=== PATIENT | female | born 1945 | race Caucasian/White ===

== ENCOUNTER 2021-07-07 14:41 | Emergency (ER) | payer MEDICARE, SELFPAY ==
--- NOTE | 2021-07-07 15:28 | ED.PSYCH ---
HPI - Psych General Stated Complaint: CRISIS Time Seen by Provider: 07/07/21 15:19 Source: patient and EMS Mode of arrival: EMS Limitations: no limitations History of Present Illness HPI Narrative: Patient comes to the emergency room by EMS, patient states that she is looking for help for alcohol recovery. Patient states that she was sober for 8 years, recently started drinking. Patient states that her mixed emotions heat her to continue drinking. Patient states she has not seen her daughter or granddaughter in several years, their birthdays coming up. Several years ago they had a disagreement and having spoken since then. Patient denies suicidal or homicidal ideation Related Data Allergies Allergy/AdvReac Type Severity Reaction Status Date / Time No Known Allergies Allergy Verified 07/07/21 15:27 Review of Systems Review of Systems: Constitutional : No Weight loss, No Fever, No Chills, No Night Sweats, No Fatigue, No Malaise ENT/Mouth : No Hearing loss, No Ear Pain, No Nasal Congestion, No Sinus Pain, No Hoarseness, No sore throat, No Rhinorrhea, No Swallowing Difficulty Eyes: No Eye Pain, No Swelling, No Redness, No Foreign Body, No Discharge, No Vision Changes Cardiovascular : No Chest Pain, No SOB, No Dyspnea on Exertion, No Orthopnea, No Edema, No Palpitations Respiratory : No Cough, No Sputum, No Wheezing, No Smoke Exposure, No Dyspnea Gastrointestinal : No Nausea, No Vomiting, No Diarrhea, No Constipation, No abdominal Pain, No Hematochezia, No Melena Genitourinary : no irregular bleeding, No Dysuria, No Urinary Frequency, No Hematuria, No Urinary Incontinence, No Urgency, No Flank Pain, No Urinary Flow Changes, No Hesitancy Musculoskeletal : No joint pain, No Myalgias, No Joint Swelling Skin : No Skin Lesions, No rash Neuro : No Weakness, No Numbness, No Paresthesias, No Loss of Consciousness, No Dizziness, No Headache Psych : Complaining of anxiety, depression, no SI, no HI Heme/Lymph: No Bruising, No Bleeding,No Lymphadenopathy Endocrine : No Polyuria, No Polydipsia, No Temperature Intolerance Physical Exam Const: Other: Appearance: Alert. Oriented X3. No acute distress. Eyes: Pupils equal, round and reactive to light. ENT: Pharynx normal. Neck: Normal inspection. Neck supple. No lymph nodes noted. No crepitus CVS: Normal heart rate and rhythm. Pulses normal. Normal S1 and S2 Respiratory: No respiratory distress. Breath sounds normal. No Wheezing. No rales Abdomen: Soft and nontender. No rigidity. No distention. good BS x4 Skin: Skin warm and dry. Normal skin color. Normal skin turgor. Extremities: No lower extremity edema. No Lacerations. No Rash Neuro: Oriented X 3. No motor deficit. No sensory deficit. Moving all extermities. No slurred speech. Cranial nerves 2-12 grossly intact Psych: Normal speech, tearful Course Course Course Narrative: Behavioral health consult pending. Physician observation started at 15:30. Sign-out given to Dr. Alcocer Discharge Plan Discharge Clinical Impression: Alcohol abuse
[2021-07-07 15:42] LABS: Appearance Urine CLEAR; Color Urine YELLOW; Glucose Urine UA NEG (NEG); Leukocyte Esterase Urine NEG (NEG); Nitrite Urine NEG (NEG); Specific Gravity - Urine <= 1.005 (1.005-1.025); UACC Culture Trigger NO; Urine Blood 1+ (NEG); Urine Ketones NEG (NEG); Urine Protein TRACE MG/DL (NEG-TRACE)
[2021-07-07 15:45] VITALS: BP 170/108; PULSE 124; RESP 18; TEMP 36.6; O2SAT 99; BMI 27.1
[2021-07-07 15:53] LABS: Amorphous Sediment Urine TRACE /LPF; Bacteria Urine TRACE /LPF; Squamous Epithelial Cell Urine TRACE /LPF; WBC Urine 0-2 /HPF (0-4)
[2021-07-07 15:58] LABS: Amphetamine Screen Urine Not Detected (Not Detect); Barbiturates, Urine POSITIVE (Not Detect); Benzodiazepines Screen Urine Not Detected (Not Detect); Cannabinoid Screen Urine Not Detected (Not Detect); Cocaine Screen Urine Not Detected (Not Detect); Fentanyl, urine Not Detected (Not Detect); Opiate Screen Urine Not Detected (Not Detect); Phencyclidine Screen Urine Not Detected (Not Detect)
[2021-07-07] MEDS: LORazepam 1 MG TABLET PO ×2 (16:08→23:52)
--- NOTE | 2021-07-07 17:23 | MHC.RECOVSUP ---
? Reason for consult Recovery Support o Current location: [facility] o Identified substance use concern: Alcohol - Seeking ATS (detox) - Support ? Intervention: o Community resources provided o Harm reduction discussion ? Plan: o Bed search in progress to o Follow up tomorrow o Patient to follow up with [facility] after discharge ? Additional information: Met with Patient and we talk about recovery, Harm Reduction, and recovery Coaching.. Client was very pleased to hear about [facility] and is looking forward to visiting the recovery center.. Patient want to go to detox to start her recovery again. Jose is working [facility], and asset recovery specialist..
--- NOTE | 2021-07-07 17:27 | MHC.RECOVSUP ---
Recovery Support note: Patient is a 76 year old Cameroonian speaking female who presented to [facility] ED seeking alcohol detox. This scientific technical writer met with patient to discuss her recovery and treatment options. Patient reports alcoholism throughout much of her adult life. Patient reports periods of sobriety last 1-5 years with periods of relapse. Patient states she has felt lonely and isolated and attributes this to her relapse. Patient reports she has been consuming 20-30 nips daily for the past several months. Patient reports she previously went to [facility] 6 months ago and found it very helpful and that she would like to return if possible. This scientific technical writer will refer patient to [facility] for ATS. [facility] reports no beds at this time and to follow up tomorrow. Discussed recovery supports with patient. Patient is interested in returning to and states there is a meeting walking distance from her house. Patient is interested in meeting with a Anesthesiology Medical Doctor while in the hospital and would also like a life skills coach to contact her after discharge for ongoing support. Discussed medications with patient. Patient reports she has had great success with Antabuse in the past and that she would like to get back on the medication. Patient reports she has a therapist who she finds very helpful and is in contact with weekly. Discussed case with patient's RN and ED provider.
[2021-07-07] MEDS: LORazepam 1 MG TABLET 2 MG PO (18:18)
[2021-07-07 19:10] VITALS: BP 134/79; PULSE 114; RESP 16; TEMP 37.4; O2SAT 98
[2021-07-07 19:13] LABS: COVID-19 Test Negative (Negative)
[2021-07-07 19:22] LABS: MANUAL DIFF FLAG NO
[2021-07-07 19:24] LABS: Basophils Percent Auto 0.5 % (0-2); Eosinophils Absolute Auto 0.1 X10*3/uL (0.0-0.4); Eosinophils Percent Auto 1.3 % (0-4); Hematocrit 30.5 % (37-47); Hemoglobin 10.5 g/dl (12.0-16.0); Imm Gran Abs Auto 0.01 X10*3/uL (0.00-0.03); Imm Gran Pct Auto 0.2 % (0.0-0.4); Lymphocytes Absolute Auto 1.9 X10*3/uL (1.2-4.9); Lymphocytes Percent Auto 34.8 % (20-40); Mean Corpuscular HGB Conc 34.4 g/dl (31.0-35.0); Mean Corpuscular Hemoglobin 31.3 pg (27.0-33.0); Mean Corpuscular Volume 90.8 fL (80-98); Monocytes Absolute Auto 0.7 X10*3/uL (0.1-1.2); Monocytes Percent Auto 13.1 % (2-11); Neutrophils Absolute Auto 2.8 X10*3/uL (2.0-8.3); Neutrophils Percent Auto 50.1 % (45-73); Platelet Count 273 X10*3/uL (160-400); Red Blood Count 3.36 X10*6/uL (4.20-5.50); Red Cell Distribution Width 13.3 % (11.0-16.0); White Blood Count 5.6 X10*3/uL (4.8-10.8)
[2021-07-07 19:39] LABS: Ethanol < 10 mg/dL
--- NOTE | 2021-07-07 19:41 | MHC.RECOVSUP ---
Just confirm Monisha received Paper work for patient
[2021-07-07 19:43] LABS: Alanine Aminotransferase 20 U/L (0-31); Albumin Level 3.9 g/dL (3.5-5.0); Alkaline Phosphatase 86 U/L (39-117); Anion Gap 11 (12-20); Aspartate Amino Transferase 26 U/L (5-31); Bilirubin Direct 0.2 mg/dL (0.0-0.5); Bilirubin Total 0.3 mg/dL (0.0-1.0); Blood Urea Nitrogen 14 mg/dL (9-16); Calcium 8.8 mg/dL (8.4-10.2); Carbon Dioxide 24 mmol/L (22-29); Chloride 106 mmol/L (96-108); Creatinine Clr Calc Pharmacy 52.5; Estimated Glomerular Filt Rate > 60; Glucose Random 130 mg/dL (60-115); Magnesium 1.5 mg/dL (1.6-2.6); Potassium 3.6 mmol/L (3.3-5.1); Sodium 137 mmol/L (135-145); Total Protein 5.9 g/dL (6.5-8.0)
[2021-07-07 23:51] VITALS: BP 145/75; PULSE 91; RESP 18; TEMP 36.8; O2SAT 98
[2021-07-08] MEDS: LORazepam 1 MG TABLET PO ×2 (06:31→10:11)
[2021-07-08 06:34] VITALS: BP 154/97; PULSE 101; TEMP 36.7; O2SAT 99
--- NOTE | 2021-07-08 07:14 | PC.NURSE ---
patient appears to remain asleep at present with even unlabored breaths patient appears in no distress
[2021-07-08 08:41] VITALS: BP 131/92; PULSE 103; TEMP 36.8; O2SAT 98
[2021-07-08] MEDS: Ibuprofen 800 MG TABLET PO (10:11)
[2021-07-08] MEDS: Magnesium Oxide 400 MG TABLET PO (11:19)
== END 2021-07-08 12:22 | disposition other institution (70) ==
PROVIDERS: Nurse Practitioner Family; Emergency Provider Emergency Medicine; PCP Internal Medicine
DX: F10.10 Alcohol abuse, uncomplicated (principal); Z20.822 Contact with and (suspected) exposure to COVID-19
CPT/HCPCS: 36415; 80048; 80076; 80307; 81001; 82077; 83735; 85025; 87635; 99284

== ENCOUNTER 2021-07-16 05:22 | Emergency (ER) | payer MEDICARE, SELFPAY ==
--- NOTE | 2021-07-16 | ECG_ITS ---
Test Reason : ETOH Blood Pressure : / mmHG Vent. Rate : 094 BPM Atrial Rate : 094 BPM P-R Int : 142 ms QRS Dur : 088 ms QT Int : 360 ms P-R-T Axes : -26 052 054 degrees QTc Int : 450 ms Normal sinus rhythm Normal ECG No previous ECGs available Referred By: Generic ED Physician Electronically Signed By:LASHAWN FLORES MD
[2021-07-16 05:27] VITALS: BP 126/77; BP 135/94; PULSE 102; PULSE 103; RESP 21; TEMP 37.4; O2SAT 98; BMI 21.9
[2021-07-16 05:48] LABS: MANUAL DIFF FLAG NO
[2021-07-16 05:49] LABS: Basophils Percent Auto 0.6 % (0-2); Eosinophils Percent Auto 0.4 % (0-4); Hematocrit 37.2 % (37-47); Hemoglobin 12.7 g/dl (12.0-16.0); Imm Gran Abs Auto 0.01 X10*3/uL (0.00-0.03); Imm Gran Pct Auto 0.2 % (0.0-0.4); Lymphocytes Absolute Auto 1.7 X10*3/uL (1.2-4.9); Lymphocytes Percent Auto 32.2 % (20-40); Mean Corpuscular HGB Conc 34.1 g/dl (31.0-35.0); Mean Corpuscular Hemoglobin 32.2 pg (27.0-33.0); Mean Corpuscular Volume 94.4 fL (80-98); Mean Platelet Volume 8.8 fL (9.4-12.3); Monocytes Absolute Auto 0.3 X10*3/uL (0.1-1.2); Monocytes Percent Auto 6.4 % (2-11); Neutrophils Absolute Auto 3.1 X10*3/uL (2.0-8.3); Neutrophils Percent Auto 60.2 % (45-73); Platelet Count 327 X10*3/uL (160-400); Red Blood Count 3.94 X10*6/uL (4.20-5.50); Red Cell Distribution Width 13.4 % (11.0-16.0); White Blood Count 5.2 X10*3/uL (4.8-10.8)
[2021-07-16 06:00] LABS: Ethanol 96 mg/dL
[2021-07-16 06:05] LABS: Alanine Aminotransferase 27 U/L (0-31); Albumin Level 4.4 g/dL (3.5-5.0); Alkaline Phosphatase 93 U/L (39-117); Anion Gap 16 (12-20); Aspartate Amino Transferase 28 U/L (5-31); Bilirubin Total < 0.2 mg/dL (0.0-1.0); Blood Urea Nitrogen 22 mg/dL (9-16); Calcium 9.7 mg/dL (8.4-10.2); Carbon Dioxide 23 mmol/L (22-29); Chloride 112 mmol/L (96-108); Creatinine Clr Calc Pharmacy 43.4; Estimated Glomerular Filt Rate 55; Glucose Random 107 mg/dL (60-115); Potassium 4.1 mmol/L (3.3-5.1); Sodium 147 mmol/L (135-145); Total Protein 6.8 g/dL (6.5-8.0)
[2021-07-16 06:08] LABS: COVID-19 Test Negative (Negative); IDNOW Serial# 9DD0AD1C
--- NOTE | 2021-07-16 06:12 | ED_ITS ---
HPI - Alcohol General Chief Complaint: ETOH/Substance Use Stated Complaint: etoh Time Seen by Provider: 07/16/21 06:08 Source: patient and EMS Mode of arrival: EMS Limitations: no limitations History of Present Illness HPI narrative: Patient is 76 years alcoholic since teenage been to various detox in the past recently went to [facility] had a problem there and left [facility] 3 days ago been drinking nonstop for last 3 days patient was sober for 8 months started drinking for last 3 weeks. Denies any depression or suicidal ideation patient requesting to go to detox again this time. No nausea no vomiting no abdominal pain no hematemesis or melena Related Data Home Medications Medication Instructions Recorded Confirmed hydrochlorothiazide 25 mg tablet 1 tab PO QAM 07/07/21 07/16/21 ibuprofen 800 mg tablet 1 tab PO TID 07/07/21 07/16/21 baclofen 10 mg tablet 1 tab PO DAILY 07/16/21 07/16/21 escitalopram oxalate 10 mg tablet 1 tab PO DAILY 07/16/21 07/16/21 lisinopril 10 mg tablet 1 tab PO DAILY 07/16/21 07/16/21 prazosin 2 mg capsule 1 cap PO BEDTIME 07/16/21 07/16/21 Allergies Allergy/AdvReac Type Severity Reaction Status Date / Time No Known Allergies Allergy Verified 07/07/21 15:27 Review of Systems Review of Systems: Yes all other systems are reviewed and are negative [facility] Past Medical History Medical History (Updated 07/16/21 @ 06:37 by Timur Proctor MD) Alcoholic Social History Social History Alcohol intake: never Patient Tobacco Use Status: Never used Tobacco Use of substances other than those prescribed or required for medical reasons: No Advance Directives: No Advance Directives Information Provided: No Physical Exam Vital Signs: Vital Signs: Last Vital Signs Temp 99.3 F 07/16/21 05:27 Pulse 103 H 07/16/21 05:27 Resp 21 H 07/16/21 05:27 BP 126/77 07/16/21 05:27 Pulse Ox 98 07/16/21 05:27 Body Mass Index 21.9 Appearance: Alert. Oriented X3. Jittery and tremulous Eyes: PERRLA, No Nystagmus ENT: Pharynx normal. Oral Mucosa moist Neck: Normal inspection. Neck supple. CVS: Normal heart rate and rhythm. Pulses normal. Respiratory: No respiratory distress. Equal air entry bilateral, no wheezing/rales/rhonchi Abdomen: Soft and nontender. Bowel sounds are present, no mass palpable, no CVA tenderness Skin: Skin warm and dry. Normal skin color. Normal skin turgor. Extremities: No lower extremity edema. No calf tenderness Neuro: Oriented X 3. No motor deficit. No sensory deficit.No cerebellar signs , cranial nerves II-XII intact MDM - Alcohol MDM Narrative Medical decision making narrative: Patient alcoholic with alcohol withdrawal looking for detox will start on CIWA protocol Librium p.o. was given 1 dose of I V Ativan IV fluids, was given thiamine, pyridoxin, , folic acid Lab Data Attestation: I reviewed the patient's lab results. Result diagrams: 07/16/21 05:43 07/16/21 05:43 Labs: Lab Results 07/16/21 07/16/21 07/16/21 Range/Units 05:43 05:43 05:43 WBC 5.2 (4.8-10.8) X10*3/uL RBC 3.94 L (4.20-5.50) X10*6/uL Hgb 12.7 D (12.0-16.0) g/dl Hct 37.2 D (37-47) % MCV 94.4 (80-98) fL MCH 32.2 (27.0-33.0) pg MCHC 34.1 (31.0-35.0) g/dl RDW 13.4 (11.0-16.0) % Plt Count 327 (160-400) X10*3/uL MPV 8.8 L (9.4-12.3) fL Immature Gran % (Auto) 0.2 (0.0-0.4) % Neut % (Auto) 60.2 (45-73) % Lymph % (Auto) 32.2 (20-40) % [place] % (Auto) 6.4 (2-11) % Eos % (Auto) 0.4 (0-4) % Baso % (Auto) 0.6 (0-2) % Lymph # (Auto) 1.7 (1.2-4.9) X10*3/uL [place] # (Auto) 0.3 (0.1-1.2) X10*3/uL Eos # (Auto) 0.0 (0.0-0.4) X10*3/uL Baso # (Auto) 0.0 (0.0-0.2) X10*3/uL Abs Immat Gran (auto) 0.01 (0.00-0.03) X10*3/uL Absolute Neuts (auto) 3.1 (2.0-8.3) X10*3/uL Absolute Nucleated RBC 0.000 (0.0-0.012) X10*3/uL Nucleated RBC % (auto) 0.0 (0.0-0.2) /100WBC Sodium (135-145) mmol/L Potassium (3.3-5.1) mmol/L Chloride (96-108) mmol/L Carbon Dioxide (22-29) mmol/L Anion Gap (12-20) BUN (9-16) mg/dL Creatinine (0.5-1.4) mg/dL Estim Creat Clear Calc Estimated GFR Random Glucose (60-115) mg/dL Calcium (8.4-10.2) mg/dL Magnesium (1.6-2.6) mg/dL Total Bilirubin (0.0-1.0) mg/dL AST (5-31) U/L ALT (0-31) U/L Alkaline Phosphatase (39-117) U/L Total Protein (6.5-8.0) g/dL Albumin (3.5-5.0) g/dL Ethyl Alcohol 96 mg/dL COVID-19 ([facility]) Negative (Negative) COVID-19 Clin Com See Note 07/16/21 Range/Units 05:43 WBC (4.8-10.8) X10*3/uL RBC (4.20-5.50) X10*6/uL Hgb (12.0-16.0) g/dl Hct (37-47) % MCV (80-98) fL MCH (27.0-33.0) pg MCHC (31.0-35.0) g/dl RDW (11.0-16.0) % Plt Count (160-400) X10*3/uL MPV (9.4-12.3) fL Immature Gran % (Auto) (0.0-0.4) % Neut % (Auto) (45-73) % Lymph % (Auto) (20-40) % [place] % (Auto) (2-11) % Eos % (Auto) (0-4) % Baso % (Auto) (0-2) % Lymph # (Auto) (1.2-4.9) X10*3/uL [place] # (Auto) (0.1-1.2) X10*3/uL Eos # (Auto) (0.0-0.4) X10*3/uL Baso # (Auto) (0.0-0.2) X10*3/uL Abs Immat Gran (auto) (0.00-0.03) X10*3/uL Absolute Neuts (auto) (2.0-8.3) X10*3/uL Absolute Nucleated RBC (0.0-0.012) X10*3/uL Nucleated RBC % (auto) (0.0-0.2) /100WBC Sodium 147 H (135-145) mmol/L Potassium 4.1 (3.3-5.1) mmol/L Chloride 112 H (96-108) mmol/L Carbon Dioxide 23 (22-29) mmol/L Anion Gap 16 (12-20) BUN 22 H D (9-16) mg/dL Creatinine 0.98 (0.5-1.4) mg/dL Estim Creat Clear Calc 43.4 Estimated GFR 55 Random Glucose 107 (60-115) mg/dL Calcium 9.7 D (8.4-10.2) mg/dL Magnesium 2.0 (1.6-2.6) mg/dL Total Bilirubin < 0.2 (0.0-1.0) mg/dL AST 28 (5-31) U/L ALT 27 (0-31) U/L Alkaline Phosphatase 93 (39-117) U/L Total Protein 6.8 (6.5-8.0) g/dL Albumin 4.4 (3.5-5.0) g/dL Ethyl Alcohol mg/dL COVID-19 ([facility]) (Negative) COVID-19 Clin Com Discharge Plan Discharge Clinical Impression: Alcohol withdrawal syndrome Qualifiers: Complication of substance-induced condition: uncomplicated Qualified Code(s): F10.230 - Alcohol dependence with withdrawal, uncomplicated Prescriptions: No Action baclofen 10 mg tablet 1 tab PO DAILY RF: 0 lisinopril 10 mg tablet 1 tab PO DAILY RF: 0 prazosin 2 mg capsule 1 cap PO BEDTIME RF: 0 escitalopram oxalate 10 mg tablet 1 tab PO DAILY RF: 0 hydrochlorothiazide 25 mg tablet 1 tab PO QAM RF: 0 ibuprofen 800 mg tablet 1 tab PO TID RF: 0
[2021-07-16] MEDS: Folic Acid 1 MG TABLET PO (06:20)
[2021-07-16] MEDS: Thiamine HCL 100 MG TABLET PO (06:20)
[2021-07-16] MEDS: chlordiazePOXIDE HCl 5 MG CAPSULE 50 MG PO ×2 (06:20→13:37)
[2021-07-16] MEDS: LORazepam 2 MG/ML VIAL IVPUSH (06:20)
[2021-07-16] MEDS: 0.9 % Sodium Chloride 1,000 ML 999 ML IVCONT (06:24)
[2021-07-16] MEDS: Pyridoxine HCl (Vitamin B6) 50 MG TABLET PO (06:53)
[2021-07-16 07:16] VITALS: BP 141/77; PULSE 96; RESP 15; O2SAT 98
[2021-07-16 11:37] VITALS: BP 146/79; PULSE 94; RESP 19; TEMP 37.3; O2SAT 99
[2021-07-16 12:48] LABS: Amphetamine Screen Urine Not Detected (Not Detect); Barbiturates, Urine Not Detected (Not Detect); Benzodiazepines Screen Urine POSITIVE (Not Detect); Cannabinoid Screen Urine Not Detected (Not Detect); Cocaine Screen Urine Not Detected (Not Detect); Fentanyl, urine Not Detected (Not Detect); Opiate Screen Urine Not Detected (Not Detect); Phencyclidine Screen Urine Not Detected (Not Detect)
--- NOTE | 2021-07-16 13:15 | MHC.RECOVSUP ---
? Reason for consult:Continuity of care o Current location: ED 17 o Identified substance use concern: ETOH - Withdrawal - Seeking ATS (detox) - Support ? Intervention: o ATS bed search started/completed/in process o MAT started or to be started o Community resources provided o Harm reduction discussion ? Plan: o Referral to [facility] o Patient to follow up with [facility] after discharge ? Additional information: Patient seeking detox, no bed availability within a 100 miles, referred patient to the [facility] and [facility]. [facility] coach or instructor and spoke with her re:MAT
--- NOTE | 2021-07-16 14:14 | MHC.RECOVRN ---
T/w assistance requested to schedule [employer] to transport pt home after finding no ATS availability. Met with pt, pt visibly tremulous, denies tremors at baseline. Pt reports upset stomach, sweating, anxiety. Pt states There are bugs crawling on the wall, I've never seen that before. Pt reports last drink 0300. Pt reports desire to stop drinking, states I'm not drinking again. There isn't any at my house. T/w discussed discharge concerns with Dr. Alcocer and pts RN, including pts hallucinations. Per provider, She can drink when she gets home if she needs to. Pt discharged, t/w arranging transport. Discussed concerns with Queenie Fofana APRN.
== END 2021-07-16 14:30 | disposition home or self-care (01) ==
PROVIDERS: Emergency Provider Internal Medicine; PCP Internal Medicine
DX: F10.230 Alcohol dependence with withdrawal, uncomplicated (principal); Y90.4 Blood alcohol level of 80-99 mg/100 ml; Z20.822 Contact with and (suspected) exposure to COVID-19; Z79.899 Other long term (current) drug therapy
CPT/HCPCS: 36415; 80053; 80307; 82077; 83735; 85025; 87635; 93005; 96361; 96374; 99284; 99285; J2060

== ENCOUNTER 2021-07-19 08:02 | Inpatient (IN) | payer MEDICARE, SELFPAY ==
[2021-07-19 08:10] VITALS: BP 142/79; PULSE 104; RESP 16; TEMP 36.7; O2SAT 99; BMI 23.3
--- NOTE | 2021-07-19 08:14 | ED.ALCOHOL ---
HPI - Alcohol General Chief Complaint: ETOH/Substance Use Stated Complaint: ?ETOH WITHDRAWAL Time Seen by Provider: 07/19/21 08:13 Source: patient and EMS Mode of arrival: EMS Limitations: no limitations History of Present Illness HPI narrative: 76-year-old female came in by ambulance seeking a detox program from alcohol. Patient with history of alcoholism since young age, patient lives home alone, patient was bingeing on drinking alcohol for the past few days, last drink was before arrival about half an hour ago, patient is here for further evaluation and refer her to rehab place. Patient admitted to seeing bugs, but otherwise no visual hallucination. Patient declined headache, blurry vision, neck pain, chest pain, abdominal pain, nausea, or vomiting today. Related Data Home Medications Medication Instructions Recorded Confirmed hydrochlorothiazide 25 mg tablet 1 tab PO QAM 07/07/21 07/16/21 ibuprofen 800 mg tablet 1 tab PO TID 07/07/21 07/16/21 baclofen 10 mg tablet 1 tab PO DAILY 07/16/21 07/16/21 escitalopram oxalate 10 mg tablet 1 tab PO DAILY 07/16/21 07/16/21 lisinopril 10 mg tablet 1 tab PO DAILY 07/16/21 07/16/21 prazosin 2 mg capsule 1 cap PO BEDTIME 07/16/21 07/16/21 Previous Rx's Medication Instructions Recorded lorazepam 0.5 mg tablet (Ativan) 0.5 mg PO TID PRN #14 tab 07/19/21 Allergies Allergy/AdvReac Type Severity Reaction Status Date / Time No Known Allergies Allergy Verified 07/07/21 15:27 Review of Systems Review of Systems: All other systems are reviewed and are negative Constitutional: Reports as per HPI and Reports no additional constitutional complaints Eyes: Reports as per HPI and Reports no additional eye complaints Reports system reviewed and no additional complaints, except as documented Cardiovascular: Reports as per HPI and Reports no additional cardiovascular complaints Respiratory: Reports as per HPI and Reports no additional respiratory complaints Gastrointestinal: Reports as per HPI and Reports no additional gastrointestinal complaints Genitourinary: Reports no additional female genitourinary complaints Musculoskeletal: Reports no additional musculoskeletal complaints Skin/Breast: Reports system reviewed and no additional complaints, except as docu Psychiatric: Reports no additional psychiatric complaints Endocrine: Reports no additional endocrine complaints Hematologic/Lymphatic: Reports no additional hematologic/lymphatic complaints Allergic/Immunologic: Reports no additional allergic/immunologic complaints Reports system reviewed and no additional complaints, except as documented and Reports Abnormal speech present [facility] Past Medical History Medical History Alcoholic Social History Social History Alcohol intake: current Alcohol intake frequency: 3 or more drinks per day Patient Tobacco Use Status: Never used Tobacco Use of substances other than those prescribed or required for medical reasons: No Advance Directives: No Advance Directives Information Provided: No Physical Exam Vital Signs: Vital Signs: Last Vital Signs Temp 98.0 F 07/19/21 08:10 Pulse 104 H 07/19/21 08:10 Resp 16 07/19/21 12:00 BP 142/79 H 07/19/21 08:10 Pulse Ox 99 07/19/21 08:10 Body Mass Index 23.3 Vital signs have been reviewed as appeared to be correct. Blood pressure normal. Heart rate elevated. Respiration rate normal. Temperature normal. Oxygen saturation normal. Appearance: Alert. Oriented X3. No acute distress. Head: Normal external exam. Normocephalic. Atraumatic. No Amor signs noted. No raccoon eyes noted Eyes: PERRLA. EOMI. Conjunctiva and sclera normal. Eyelids normal. ENT: TM's Normal. Pharynx normal. Uvula midline. Moist mucous membranes. No trismus noted. No drooling noted. No muffled voice noted. Neck: Normal inspection. Neck supple. FROM. No adenopathy. Thyroid Normal. No meningeal signs. No neck mass noted. CVS: Normal heart rate and rhythm. Heart sound normal. No murmurs noted. Pulses normal throughout. Respiratory: No respiratory distress. Painless inspiration. Breath sounds normal. No wheezes/rales/rhonchi noted. Chest nontender. No accessory muscle usage noted or decreased air movement noted. Abdomen: Soft and nontender. Bowel sounds normal in all 4 quadrants. No distention noted. No organomegaly noted. No visible injury noted. Back: No CVA tenderness. Full range of motion noted. Skin: Skin warm and dry. Normal skin color. Normal skin turgor. No rashes/lesions/lacerations noted. Extremities: No lower extremity edema. Extremities exhibit normal range of motion. Extremities nontender. Neuro: Oriented X 3. Cranial nerve exam: II-XII are grossly intact No motor deficit. No sensory deficit. Reflexes normal. Course Course Course Narrative: Assessment and plan. 76-year-old female with chronic alcoholism, patient came to the hospital seeking detox program, care team input was appreciated trying to place the patient in a detox program no beds were open today, I discussed with the patient the plan is to to be discharged with Ativan medication to help patient with withdrawal symptoms, patient at discharge has no SI or HI or hallucination. Patient is safe to be discharged home. Reevaluation(s) Reevaluation #1: Patient started show sign of alcohol withdrawal with severe tremors and tongue fasciculation. Will keep the patient on phenobarb and admit. Time: 14:29 [facility] - Alcohol Medical Records Attestation: I reviewed the patient's medical records. Lab Data Attestation: I reviewed the patient's lab results. Result diagrams: 07/19/21 08:38 07/19/21 08:38 Labs: Lab Results 07/19/21 07/19/21 07/19/21 Range/Units 08:38 08:38 08:38 WBC 5.0 (4.8-10.8) X10*3/uL RBC 3.95 L (4.20-5.50) X10*6/uL Hgb 12.4 (12.0-16.0) g/dl Hct 36.7 L (37-47) % MCV 92.9 (80-98) fL MCH 31.4 (27.0-33.0) pg MCHC 33.8 (31.0-35.0) g/dl RDW 13.2 (11.0-16.0) % Plt Count 326 (160-400) X10*3/uL MPV 8.9 L (9.4-12.3) fL Immature Gran % (Auto) 0.4 (0.0-0.4) % Neut % (Auto) 64.1 (45-73) % Lymph % (Auto) 27.4 (20-40) % [place] % (Auto) 6.9 (2-11) % Eos % (Auto) 0.6 (0-4) % Baso % (Auto) 0.6 (0-2) % Lymph # (Auto) 1.4 (1.2-4.9) X10*3/uL [place] # (Auto) 0.3 (0.1-1.2) X10*3/uL Eos # (Auto) 0.0 (0.0-0.4) X10*3/uL Baso # (Auto) 0.0 (0.0-0.2) X10*3/uL Abs Immat Gran (auto) 0.02 (0.00-0.03) X10*3/uL Absolute Neuts (auto) 3.2 (2.0-8.3) X10*3/uL Absolute Nucleated RBC 0.000 (0.0-0.012) X10*3/uL Nucleated RBC % (auto) 0.0 (0.0-0.2) /100WBC Sodium 148 H (135-145) mmol/L Potassium 3.4 (3.3-5.1) mmol/L Chloride 115 H (96-108) mmol/L Carbon Dioxide 18 L (22-29) mmol/L Anion Gap 18 (12-20) BUN 18 H (9-16) mg/dL Creatinine 0.70 (0.5-1.4) mg/dL Estim Creat Clear Calc 63.4 Estimated GFR > 60 Random Glucose 120 H (60-115) mg/dL Calcium 9.2 (8.4-10.2) mg/dL Lipase 19 (8-78) U/L Urine Color Urine Appearance Urine pH (5.0-8.0) Ur Specific [place] (1.005-1.025) Urine Protein (NEG-TRACE) MG/DL Urine Glucose (UA) (NEG) MG/DL Urine Ketones (NEG) MG/DL Urine Blood (NEG) Urine Nitrite (NEG) Ur Leukocyte Esterase (NEG) Urine RBC (0) /HPF Urine WBC (0-4) /HPF Ur Squamous Epith Cells /LPF Urine Bacteria /LPF Urine Mucus /LPF Ethyl Alcohol 180 mg/dL 07/19/21 Range/Units 13:12 WBC (4.8-10.8) X10*3/uL RBC (4.20-5.50) X10*6/uL Hgb (12.0-16.0) g/dl Hct (37-47) % MCV (80-98) fL MCH (27.0-33.0) pg MCHC (31.0-35.0) g/dl RDW (11.0-16.0) % Plt Count (160-400) X10*3/uL MPV (9.4-12.3) fL Immature Gran % (Auto) (0.0-0.4) % Neut % (Auto) (45-73) % Lymph % (Auto) (20-40) % [place] % (Auto) (2-11) % Eos % (Auto) (0-4) % Baso % (Auto) (0-2) % Lymph # (Auto) (1.2-4.9) X10*3/uL [place] # (Auto) (0.1-1.2) X10*3/uL Eos # (Auto) (0.0-0.4) X10*3/uL Baso # (Auto) (0.0-0.2) X10*3/uL Abs Immat Gran (auto) (0.00-0.03) X10*3/uL Absolute Neuts (auto) (2.0-8.3) X10*3/uL Absolute Nucleated RBC (0.0-0.012) X10*3/uL Nucleated RBC % (auto) (0.0-0.2) /100WBC Sodium (135-145) mmol/L Potassium (3.3-5.1) mmol/L Chloride (96-108) mmol/L Carbon Dioxide (22-29) mmol/L Anion Gap (12-20) BUN (9-16) mg/dL Creatinine (0.5-1.4) mg/dL Estim Creat Clear Calc Estimated GFR Random Glucose (60-115) mg/dL Calcium (8.4-10.2) mg/dL Lipase (8-78) U/L Urine Color YELLOW Urine Appearance HAZY Urine pH 6.0 (5.0-8.0) Ur Specific [place] 1.020 (1.005-1.025) Urine Protein TRACE (NEG-TRACE) MG/DL Urine Glucose (UA) NEG (NEG) MG/DL Urine Ketones 5 (NEG) MG/DL Urine Blood TRACE (NEG) Urine Nitrite NEG (NEG) Ur Leukocyte Esterase TRACE H (NEG) Urine RBC 1-4 (0) /HPF Urine WBC 1-4 (0-4) /HPF Ur Squamous Epith Cells 1+ /LPF Urine Bacteria NONE /LPF Urine Mucus TRACE /LPF Ethyl Alcohol mg/dL Discharge Plan Discharge Clinical Impression: Alcohol withdrawal Patient Disposition: Admitted As Inpatient Instructions: Abuse of Alcohol (ED) Prescriptions: New lorazepam [Ativan] 0.5 mg tablet 0.5 mg PO TID PRN (Reason: alcohol withdrawal) Qty: 14 RF: 0 No Action baclofen 10 mg tablet 1 tab PO DAILY RF: 0 lisinopril 10 mg tablet 1 tab PO DAILY RF: 0 prazosin 2 mg capsule 1 cap PO BEDTIME RF: 0 escitalopram oxalate 10 mg tablet 1 tab PO DAILY RF: 0 hydrochlorothiazide 25 mg tablet 1 tab PO QAM RF: 0 ibuprofen 800 mg tablet 1 tab PO TID RF: 0 Referrals: Valdo Taylor MD [Primary Care Provider] - 2 days Interventions: ED Discharge Assessment Last Done: 07/19/21 13:56
[2021-07-19] MEDS: 0.9 % Sodium Chloride 1,000 ML 999 ML IVCONT (08:37)
[2021-07-19 08:41] LABS: MANUAL DIFF FLAG NO
[2021-07-19] MEDS: LORazepam 2 MG/ML VIAL 1 MG IVPUSH (08:41)
[2021-07-19 08:43] LABS: Basophils Percent Auto 0.6 % (0-2); Eosinophils Percent Auto 0.6 % (0-4); Hematocrit 36.7 % (37-47); Hemoglobin 12.4 g/dl (12.0-16.0); Imm Gran Abs Auto 0.02 X10*3/uL (0.00-0.03); Imm Gran Pct Auto 0.4 % (0.0-0.4); Lymphocytes Absolute Auto 1.4 X10*3/uL (1.2-4.9); Lymphocytes Percent Auto 27.4 % (20-40); Mean Corpuscular HGB Conc 33.8 g/dl (31.0-35.0); Mean Corpuscular Hemoglobin 31.4 pg (27.0-33.0); Mean Corpuscular Volume 92.9 fL (80-98); Mean Platelet Volume 8.9 fL (9.4-12.3); Monocytes Absolute Auto 0.3 X10*3/uL (0.1-1.2); Monocytes Percent Auto 6.9 % (2-11); Neutrophils Absolute Auto 3.2 X10*3/uL (2.0-8.3); Neutrophils Percent Auto 64.1 % (45-73); Platelet Count 326 X10*3/uL (160-400); Red Blood Count 3.95 X10*6/uL (4.20-5.50); Red Cell Distribution Width 13.2 % (11.0-16.0)
[2021-07-19 09:00] LABS: Ethanol 180 mg/dL
[2021-07-19 09:04] LABS: Anion Gap 18 (12-20); Blood Urea Nitrogen 18 mg/dL (9-16); Calcium 9.2 mg/dL (8.4-10.2); Carbon Dioxide 18 mmol/L (22-29); Chloride 115 mmol/L (96-108); Creatinine Clr Calc Pharmacy 63.4; Estimated Glomerular Filt Rate > 60; Glucose Random 120 mg/dL (60-115); Lipase 19 U/L (8-78); Potassium 3.4 mmol/L (3.3-5.1); Sodium 148 mmol/L (135-145)
--- NOTE | 2021-07-19 09:57 | MHC.RECOVSUP ---
Recovery Support note: Patient is a 76 year old [place] speaking female who presented to [facility] [place] ED seeking detox. Patient is known to this typewriter assembly and parts inspector from previous consultations. Patient was referred to [facility] from [facility] [facility] on 07/07 and discharged from the facility on 07/13. Patient represented to [facility] on 07/16 seeking detox however no beds were available at that time. Patient returned to [facility] ED on 07/19 seeking detox. Patient conducted intake with [facility] however they are unable to admit her due to her discharging within seven days. Patient has been referred to [facility] for ATS admission. This typewriter assembly and parts inspector awaits follow up from these facilities.
[2021-07-19 12:00] VITALS: RESP 16
[2021-07-19 13:18] LABS: Glucose Urine UA NEG (NEG); Leukocyte Esterase Urine TRACE (NEG); Nitrite Urine NEG (NEG); UACC Culture Trigger YES; Urine Blood TRACE (NEG); Urine Ketones 5 MG/DL (NEG); Urine Protein TRACE MG/DL (NEG-TRACE)
[2021-07-19 13:23] LABS: Appearance Urine HAZY; Color Urine YELLOW
[2021-07-19 13:27] LABS: Mucus Urine TRACE /LPF; Squamous Epithelial Cell Urine 1+ /LPF
[2021-07-19] MEDS: LORazepam 2 MG/ML VIAL IVPUSH (14:37)
[2021-07-19 14:40] VITALS: BP 154/92; PULSE 115; RESP 20; O2SAT 97
--- NOTE | 2021-07-19 14:42 | PC.NURSE ---
PLANNED DISCHARGE CANCELLED SECONDARY TO ACUTE ALCOHOL WITHDRAWAL SXS - SEVERE TREMORS NOTED. MD AWARE AND IV ACCESS WAS REESTABLISHED AND PT WAS PLACED ON THE MONITOR AND MEDICATED
--- NOTE | 2021-07-19 14:52 | PM.IMHP ---
History of Present Illness Date of Service: 07/19/21 <Tressa Hilton NP - Last Filed: 07/19/21 16:11> Chief Complaint: Alcohol withdrawl <Tressa Hilton NP - Last Filed: 07/19/21 16:11> 76 year old women presenting with hand tremors and increase in alcohol intake. She reported that she has had more stress in her life and has been drinking more than a sleeve of alcohol a day. She reported that she is interested in detox and has been feeling very tremulous. She denied injury, chest pain, sob, nausea, vomiting, diarrhea. Her sodium was noted to be elevated at 148, alcohol level 180. She is noted to be tachycardic and hypertensive. She was given, lorazepam, 1 L IV fluids and was started on phenobarbital. She will be admitted for further management and treatment acute alcohol withdrawal. <Tressa Hilton NP - Last Filed: 07/19/21 16:11> Review of Systems Review of Systems: Denies any recent fever chills or decrease in appetite respiratory denies any shortness of breath coverage production cardiovascular denies chest pain gastrointestinal denies any dysphagia abdominal pain nausea vomiting or diarrhea genitourinary denies any dysuria frequency or hematuria musculoskeletal denies any joint pain or swelling neuropsych denies any weakness or seizures, reports hand tremors all other systems reviewed are negative <Tressa Hilton NP - Last Filed: 07/19/21 16:11> [facility] Medical History: Medical History Alcoholic <Tressa Hilton NP - Last Filed: 07/19/21 16:11> Family History: Family History (Updated 07/19/21 @ 16:07 by Tressa Hilton NP) Mother Alzheimer disease <Tressa Hilton NP - Last Filed: 07/19/21 16:11> Pertinent family history: No cardiac disease <Tressa Hilton NP - Last Filed: 07/19/21 16:11> Social History: Social History Household Members: None Housing: Apartment Do you presently have visiting nurse or other home services: No Alcohol intake: current Alcohol intake frequency: 3 or more drinks per day Patient Tobacco Use Status: Never used Tobacco service: No Current occupational status: retired <Tressa Hilton NP - Last Filed: 07/19/21 16:11> Meds Allergies/Adverse reactions: Allergies Allergy/AdvReac Type Severity Reaction Status Date / Time No Known Allergies Allergy Verified 07/07/21 15:27 <Tressa Hilton NP - Last Filed: 07/19/21 16:11> Active Medications: Current Medications Medication (No Benzodiazepines) 1 each MISCELLANE DAILY [facility] Pharmacy Consult (Consult Rx Perform Med Rec) 1 each MISCELLANE ONCE PRN PRN Reason: Consult order Pharmacy Consult (Consult Rx Etoh Phenob Dosing) 1 each MISCELLANE ONCE ONE; Protocol Stop: 07/19/21 14:27 <Tressa Hilton NP - Last Filed: 07/19/21 16:11> Home medications: Home Medications Medication Instructions Recorded Confirmed Last Taken Type hydrochlorothiazide 25 mg tablet 1 tab PO QAM 07/07/21 07/19/21 07/19/21 History lisinopril 10 mg tablet 1 tab PO DAILY 07/16/21 07/19/21 07/19/21 History aspirin 81 mg tablet,delayed 81 mg PO DAILY 07/19/21 07/19/21 Unknown History release tramadol 50 mg tablet 1 tab PO Q8H PRN 07/19/21 07/19/21 Unknown History <Tressa Hilton NP - Last Filed: 07/19/21 16:11> Physical Exam Vital Signs and Narrative: Vital Signs: Last Vital Signs Temp 98.0 F 07/19/21 08:10 Pulse 115 H 07/19/21 14:40 Resp 20 07/19/21 14:40 BP 154/92 H 07/19/21 14:40 Pulse Ox 97 07/19/21 14:40 Body Mass Index 23.3 <Tressa Hilton NP - Last Filed: 07/19/21 16:11> Appearing in no acute distress head is normocephalic atraumatic eyes pupils are PERRLA sclera is anicteric mouth throat mucous membranes are intact and moist neck is supple no lymphadenopathy, no JVD noted lung sounds are clear to auscultation heart regular rate rhythm, clear S1, S2 positive bowel sounds, abdomen is soft, nontender neuro patient is alert x3, no focal deficits <Tressa Hilton NP - Last Filed: 07/19/21 16:11> Results Labs CBC and Chem 7: : 07/20/21 05:38 07/23/21 05:58 <Tressa Hilton NP - Last Filed: 07/19/21 16:11> Labs: Laboratory Results - last 24 hr 07/19/21 07/19/21 07/19/21 08:38 08:38 08:38 MCV 92.9 MCH 31.4 MCHC 33.8 RDW 13.2 Plt Count 326 MPV 8.9 L Immature Gran % (Auto) 0.4 Neut % (Auto) 64.1 Lymph % (Auto) 27.4 [place] % (Auto) 6.9 Eos % (Auto) 0.6 Baso % (Auto) 0.6 Lymph # (Auto) 1.4 [place] # (Auto) 0.3 Eos # (Auto) 0.0 Baso # (Auto) 0.0 Abs Immat Gran (auto) 0.02 Absolute Neuts (auto) 3.2 Absolute Nucleated RBC 0.000 Nucleated RBC % (auto) 0.0 Anion Gap 18 Estim Creat Clear Calc 63.4 Estimated GFR > 60 Random Glucose 120 H Calcium 9.2 Lipase 19 Urine Color Urine Appearance Urine pH Ur Specific [place] Urine Protein Urine Glucose (UA) Urine Ketones Urine Blood Urine Nitrite Ur Leukocyte Esterase Urine RBC Urine WBC Ur Squamous Epith Cells Urine Bacteria Urine Mucus Ethyl Alcohol 180 07/19/21 13:12 MCV MCH MCHC RDW Plt Count MPV Immature Gran % (Auto) Neut % (Auto) Lymph % (Auto) [place] % (Auto) Eos % (Auto) Baso % (Auto) Lymph # (Auto) [place] # (Auto) Eos # (Auto) Baso # (Auto) Abs Immat Gran (auto) Absolute Neuts (auto) Absolute Nucleated RBC Nucleated RBC % (auto) Anion Gap Estim Creat Clear Calc Estimated GFR Random Glucose Calcium Lipase Urine Color YELLOW Urine Appearance HAZY Urine pH 6.0 Ur Specific [place] 1.020 Urine Protein TRACE Urine Glucose (UA) NEG Urine Ketones 5 Urine Blood TRACE Urine Nitrite NEG Ur Leukocyte Esterase TRACE H Urine RBC 1-4 Urine WBC 1-4 Ur Squamous Epith Cells 1+ Urine Bacteria NONE Urine Mucus TRACE Ethyl Alcohol <Tressa Hilton NP - Last Filed: 07/19/21 16:11> Assessment and Plan (1) Alcohol withdrawal: Status: Resolved <Tressa Hilton NP - Last Filed: 07/19/21 16:11> (2) Hypernatremia: Status: Resolved <Tressa Hilton NP - Last Filed: 07/19/21 16:11> (3) Hypertension: 76 year old women admitted with alcohol withdrawl symptoms and electrolyte abnormalities Alcohol withdrawl Phenobarbitol protocol care team consult thiamine, MV, folic acid encourage oral intake Hypernatremia Likely from dehydration Gentle D5W recheck BMP If no improvement consider nephrology consultation Hypertension continue HCTZ, Lisinopril Mental health Continue home medications DVT prophylaxis with Attending Dr. Mahendra Wiggins Full code <Tressa Hilton NP - Last Filed: 07/19/21 16:11> 76 year old women admitted with alcohol withdrawl symptoms and electrolyte abnormalities Alcohol withdrawl Phenobarbitol protocol care team consult thiamine, MV, folic acid encourage oral intake Hypernatremia Likely from dehydration Gentle D5W recheck BMP If no improvement consider nephrology consultation Hypertension continue HCTZ, Lisinopril Mental health Continue home medications DVT prophylaxis with Attending Dr. Mahendra Wiggins Full code I have personally examined in review chart. Agree with history and physical and plan as documented by Ms. Vlad CASTRO <Mahendra Wiggins, DO - Last Filed: 09/07/21 12:45> Quality Stroke Does the patient have a stroke diagnosis?: No <Tressa Hilton NP - Last Filed: 07/19/21 16:11> VTE Prior VTE?: No <Tressa Hilton NP - Last Filed: 07/19/21 16:11> VTE Risk Level:: Medical - moderate - high <Tressa Hilton NP - Last Filed: 07/19/21 16:11> VTE Device Contraindication: Treatment Not Indicated <Tressa Hilton NP - Last Filed: 07/19/21 16:11> VTE Drug Contraindication: N/A - Med Ordered <Tressa Hilton NP - Last Filed: 07/19/21 16:11>
--- NOTE | 2021-07-19 14:57 | MHC.RECOVSUP ---
Recovery Support note: No available detox beds at facilities that accept patient's insurance. ED provider aware.
--- NOTE | 2021-07-19 15:32 | PHA.MEDREC ---
Pharmacy Consult ? Medication Reconciliation Pharmacy has completed the medication reconciliation. Asuncion SykesD
[2021-07-19] MEDS: PHENobarbitaL sodium 130 MG/ML VIAL 182 MG IM (15:36)
[2021-07-19 16:23] LABS: Anion Gap 14 (12-20); Blood Urea Nitrogen 20 mg/dL (9-16); COVID-19 Test Negative (Negative); Carbon Dioxide 24 mmol/L (22-29); Chloride 110 mmol/L (96-108); Creatinine Clr Calc Pharmacy 51.6; Estimated Glomerular Filt Rate > 60; Glucose Random 157 mg/dL (60-115); IDNOW Serial# 55D5AD1C; Potassium 4.6 mmol/L (3.3-5.1); Sodium 143 mmol/L (135-145)
[2021-07-19] MEDS: Folic Acid 1 MG TABLET PO (17:00)
[2021-07-19] MEDS: Thiamine HCL 100 MG TABLET PO (17:00)
[2021-07-19] MEDS: Enoxaparin Sodium 40 MG/0.4 ML SYRINGE SUBCUT (17:01)
[2021-07-19] MEDS: Dextrose 5 % 1,000 ML 50 ML IVCONT (17:01)
--- NOTE | 2021-07-19 17:21 | MHC.CM.PN ---
CM met with admitted patient with [facility] bed assignment pending. Pt is A&Ox3, but has a poor memory. IMM reviewed and signed 07/19/2021 @164. Chema Batres is her contact. Cannot remember her brother's telephone number. Review of old records shows no mention of contact info. Pt would like Chema to be her HCP. Will conplete when contact information is available. Pt uses no DME and states she gets mom's meals from [email or web address]. Pt states she has some transportation through [email or web address] as well. Pt has a therapist weekly (Jarek Bhakta) that she speaks to via phone appointment. Pt was recently D/C from [facility] on 07/13/2021. Pt was at [facility] seeking rehab on 07/07 and 07/16. Pt is again seeking rehab this admission and Care Team is working with this patient. Pt is fully vaccinated with Pfizer 02/05 and 02/26/2021. D/C plan is rehab pending bed availability. Pt does not have transportation home. CM to follow for d/c needs.
[2021-07-19 18:53] VITALS: BP 106/70; PULSE 104; RESP 20; TEMP 36.3; O2SAT 97
[2021-07-19] MEDS: PHENobarbitaL sodium 130 MG/ML VIAL 137 MG IM ×2 (19:00→21:18)
[2021-07-19 20:00] VITALS: BP 125/69; PULSE 98; RESP 18; TEMP 36.6; O2SAT 100
[2021-07-19] MEDS: Multivitamin TABLET 1 TAB PO (21:18)
[2021-07-19 21:44] VITALS: BMI 24.2
[2021-07-19 23:12] VITALS: BP 119/52; PULSE 95; RESP 16; TEMP 36.4; O2SAT 96
[2021-07-19] MEDS: ondansetron HCL 4 MG/2 ML VIAL IVPUSH (23:56)
[2021-07-20 03:23] VITALS: BP 121/63; PULSE 90; RESP 12; TEMP 36.4; O2SAT 98
[2021-07-20] MEDS: Acetaminophen 325 MG TABLET 650 MG PO ×2 (05:42→14:42)
[2021-07-20 06:27] LABS: MANUAL DIFF FLAG NO
[2021-07-20 06:50] LABS: Basophils Percent Auto 0.7 % (0-2); Eosinophils Absolute Auto 0.1 X10*3/uL (0.0-0.4); Eosinophils Percent Auto 1.1 % (0-4); Hematocrit 30.2 % (37-47); Hemoglobin 10.1 g/dl (12.0-16.0); Lymphocytes Absolute Auto 1.1 X10*3/uL (1.2-4.9); Lymphocytes Percent Auto 24.6 % (20-40); Mean Corpuscular HGB Conc 33.4 g/dl (31.0-35.0); Mean Corpuscular Hemoglobin 31.3 pg (27.0-33.0); Mean Corpuscular Volume 93.5 fL (80-98); Mean Platelet Volume 9.4 fL (9.4-12.3); Monocytes Absolute Auto 0.4 X10*3/uL (0.1-1.2); Neutrophils Absolute Auto 2.8 X10*3/uL (2.0-8.3); Neutrophils Percent Auto 64.6 % (45-73); Platelet Count 246 X10*3/uL (160-400); Red Blood Count 3.23 X10*6/uL (4.20-5.50); White Blood Count 4.4 X10*3/uL (4.8-10.8)
[2021-07-20 07:03] VITALS: BP 153/75; PULSE 88; RESP 17; TEMP 36.4; O2SAT 100
[2021-07-20 07:05] LABS: Anion Gap 12 (12-20); Blood Urea Nitrogen 19 mg/dL (9-16); Calcium 8.6 mg/dL (8.4-10.2); Carbon Dioxide 22 mmol/L (22-29); Chloride 108 mmol/L (96-108); Creatinine Clr Calc Pharmacy 68.3; Estimated Glomerular Filt Rate > 60; Glucose Random 112 mg/dL (60-115); Potassium 3.8 mmol/L (3.3-5.1); Sodium 138 mmol/L (135-145)
[2021-07-20] MEDS: Thiamine HCL 100 MG TABLET PO (07:53)
[2021-07-20] MEDS: Aspirin Enteric Coated 81 MG TABLET.DR PO (07:53)
[2021-07-20] MEDS: PHENobarbitaL 15 MG TABLET 45 MG PO ×2 (07:54→20:00)
[2021-07-20] MEDS: traMADoL HCL 50 MG TABLET PO ×2 (07:54→20:00)
[2021-07-20] MEDS: Folic Acid 1 MG TABLET PO (07:54)
[2021-07-20] MEDS: PHENobarbitaL sodium 65 MG/ML VIAL IM (10:02)
[2021-07-20 11:21] VITALS: BP 169/81; PULSE 95; RESP 17; TEMP 36.4; O2SAT 98
--- NOTE | 2021-07-20 11:22 | PM.IMPN ---
Progress Note: A&P (1) Hypertension: Status: Acute (2) Alcohol withdrawal: Status: Acute (3) Hypernatremia: Status: Acute Assessment and Plan: 76 year old women admitted with alcohol withdrawl symptoms and electrolyte abnormalities Alcohol withdrawl Phenobarbitol protocol care team consult thiamine, MV, folic acid encourage oral intake? Added an extra dose of phenobarb today for anxiety Hypernatremia. Resolved Likely from dehydration stop D5W Hypertension continue HCTZ, Lisinopril Mental health Continue home medications DVT prophylaxis with Attending Dr. Guzman Full code Subjective Subjective Date of Service: 07/20/21 Review of Systems Follow-up alcohol withdrawal symptoms Still with anxiety and tremors today Good appetite Physical Exam Vital Signs: Vital Signs: Last Vital Signs Temp 97.5 F 07/20/21 11:21 Pulse 95 07/20/21 11:21 Resp 17 07/20/21 11:21 BP 169/81 H 07/20/21 11:21 Pulse Ox 98 07/20/21 11:21 Body Mass Index 24.2 Appearing in no acute distress lung sounds are clear to auscultation heart regular rate rhythm, clear S1, S2 positive bowel sounds, abdomen is soft, nontender neuro patient is alert x3, no focal deficits Objective Data Current Medications Acetaminophen (Acetaminophen 325 Mg Tablet) 650 mg PO Q6H PRN PRN Reason: Pain, Mild (Pain Scale 1-3) Last Admin: 07/20/21 05:42 Dose: 650 mg Documented by: Aspirin (Aspirin Enteric Coated 81 Mg Tablet.) 81 mg PO DAILY [facility] Last Admin: 07/20/21 07:53 Dose: 81 mg Documented by: Enoxaparin Sodium (Enoxaparin Sodium 40 Mg/0.4 Ml Syringe) 40 mg SUBCUT Q24H [facility] Last Admin: 07/19/21 17:01 Dose: 40 mg Documented by: Folic Acid (Folic Acid 1 Mg Tablet) 1 mg PO DAILY [facility] Last Admin: 07/20/21 07:54 Dose: 1 mg Documented by: Medication (No Benzodiazepines) 1 each MISCELLANE DAILY [facility] Multivitamins/Vitamin C (Multivitamin Tablet) 1 tab PO BEDTIME [facility] Last Admin: 07/19/21 21:18 Dose: 1 tab Documented by: Ondansetron HCl (Ondansetron Hcl 4 Mg/2 Ml Vial) 4 mg IVPUSH Q8H PRN PRN Reason: Nausea and Vomiting Last Admin: 07/19/21 23:56 Dose: 4 mg Documented by: Pharmacy Consult (Consult Rx Perform Med Rec) 1 each MISCELLANE ONCE PRN PRN Reason: Consult order Phenobarbital (Phenobarbital 15 Mg Tablet) 45 mg PO BID [facility]; Protocol Stop: 07/21/21 21:01 Last Admin: 07/20/21 07:54 Dose: 45 mg Documented by: Phenobarbital (Phenobarbital 15 Mg Tablet) 15 mg PO BID [facility]; Protocol Stop: 07/23/21 21:01 Phenobarbital (Phenobarbital 15 Mg Tablet) 15 mg PO DAILY [facility]; Protocol Stop: 07/25/21 09:01 Sodium Chloride (0.9 % Sodium Chloride Flush 3 Ml Syringe) 3 ml IVFLUSH QSHIFT [facility] Last Admin: 07/20/21 07:45 Dose: Not Given Documented by: Thiamine HCl (Thiamine Hcl 100 Mg Tablet) 100 mg PO DAILY [facility] Last Admin: 07/20/21 07:53 Dose: 100 mg Documented by: Tramadol HCl (Tramadol Hcl 50 Mg Tablet) 50 mg PO Q8H PRN PRN Reason: Pain Last Admin: 07/20/21 07:54 Dose: 50 mg Documented by: Labs CBC & Chem 7: 07/20/21 05:38 07/20/21 05:38 Labs: Laboratory Results - last 24 hr 07/19/21 07/19/21 07/19/21 13:12 15:58 15:58 MCV MCH MCHC RDW Plt Count MPV Immature Gran % (Auto) Neut % (Auto) Lymph % (Auto) [place] % (Auto) Eos % (Auto) Baso % (Auto) Lymph # (Auto) [place] # (Auto) Eos # (Auto) Baso # (Auto) Abs Immat Gran (auto) Absolute Neuts (auto) Absolute Nucleated RBC Nucleated RBC % (auto) Anion Gap 14 Estim Creat Clear Calc 51.6 Estimated GFR > 60 Random Glucose 157 H Calcium 9.0 Urine Color YELLOW Urine Appearance HAZY Urine pH 6.0 Ur Specific [place] 1.020 Urine Protein TRACE Urine Glucose (UA) NEG Urine Ketones 5 Urine Blood TRACE Urine Nitrite NEG Ur Leukocyte Esterase TRACE H Urine RBC 1-4 Urine WBC 1-4 Ur Squamous Epith Cells 1+ Urine Bacteria NONE Urine Mucus TRACE COVID-19 ([facility]IE) Negative COVID-19 Clin Com See Note 07/20/21 07/20/21 05:38 05:38 MCV 93.5 MCH 31.3 MCHC 33.4 RDW 13.0 Plt Count 246 MPV 9.4 Immature Gran % (Auto) 0.0 Neut % (Auto) 64.6 Lymph % (Auto) 24.6 [place] % (Auto) 9.0 Eos % (Auto) 1.1 Baso % (Auto) 0.7 Lymph # (Auto) 1.1 L [place] # (Auto) 0.4 Eos # (Auto) 0.1 Baso # (Auto) 0.0 Abs Immat Gran (auto) 0.00 Absolute Neuts (auto) 2.8 Absolute Nucleated RBC 0.000 Nucleated RBC % (auto) 0.0 Anion Gap 12 Estim Creat Clear Calc 68.3 Estimated GFR > 60 Random Glucose 112 Calcium 8.6 Urine Color Urine Appearance Urine pH Ur Specific [place] Urine Protein Urine Glucose (UA) Urine Ketones Urine Blood Urine Nitrite Ur Leukocyte Esterase Urine RBC Urine WBC Ur Squamous Epith Cells Urine Bacteria Urine Mucus COVID-19 ([facility]IE) COVID-19 Clin Com Quality Stroke Does the patient have a stroke diagnosis?: No VTE Prior VTE?: No VTE Risk Level:: Medical - moderate - high VTE Device Contraindication: Treatment Not Indicated VTE Drug Contraindication: N/A - Med Ordered
--- NOTE | 2021-07-20 11:24 | MHC.RECOVSUP ---
? Reason for consult:Continuity of care o Current location: [facility] o Identified substance use concern:ETOH - Withdrawal - Seeking ATS (detox) - Support ? Intervention: o Community resources provided o Harm reduction discussion ? Plan: o Patient to follow up with [facility] after discharge ? Additional information: Patient on the floor detoxing with Phenobarb.
[2021-07-20] MEDS: ondansetron HCL 4 MG/2 ML VIAL IVPUSH (12:10)
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
[2021-07-20 15:54] VITALS: BP 163/89; PULSE 97; RESP 20; TEMP 36.4; O2SAT 98
[2021-07-20] MEDS: 0.9 % Sodium Chloride Flush 3 ML SYRINGE IVFLUSH ×2 (16:35→20:00)
[2021-07-20] MEDS: Enoxaparin Sodium 40 MG/0.4 ML SYRINGE SUBCUT (16:35)
--- NOTE | 2021-07-20 17:18 | MHC.CM.PN ---
Primary contact/brother Chema Medardo. Pt did not have any contact info. ? telephone number [phone]. Pt had requested Chema to be her HCP. CM did not call the number to verify if it is correct.
[2021-07-20 19:14] VITALS: BP 111/73; PULSE 101; RESP 16; TEMP 36.6; O2SAT 96
[2021-07-20] MEDS: Multivitamin TABLET 1 TAB PO (20:00)
[2021-07-20 23:30] VITALS: BP 126/76; PULSE 85; RESP 18; TEMP 36.2; O2SAT 98
[2021-07-21] VITALS (7 sets, daily range): BP systolic 133–159; BP diastolic 70–98; PULSE 86–100; RESP 16–18; TEMP 35.8–36.9; O2SAT 96–100
[2021-07-21] MEDS: Acetaminophen 325 MG TABLET 650 MG PO ×2 (00:12→18:25)
[2021-07-21 07:04] LABS: Anion Gap 10 (12-20); Blood Urea Nitrogen 11 mg/dL (9-16); Calcium 8.5 mg/dL (8.4-10.2); Carbon Dioxide 26 mmol/L (22-29); Chloride 105 mmol/L (96-108); Creatinine Clr Calc Pharmacy 59.2; Estimated Glomerular Filt Rate > 60; Glucose Random 112 mg/dL (60-115); Magnesium 1.7 mg/dL (1.6-2.6); Potassium 4.3 mmol/L (3.3-5.1); Sodium 137 mmol/L (135-145)
[2021-07-21] MEDS: Folic Acid 1 MG TABLET PO (08:36)
[2021-07-21] MEDS: Thiamine HCL 100 MG TABLET PO (08:36)
[2021-07-21] MEDS: Aspirin Enteric Coated 81 MG TABLET.DR PO (08:36)
[2021-07-21] MEDS: PHENobarbitaL 15 MG TABLET 45 MG PO ×2 (08:37→22:10)
[2021-07-21] MEDS: 0.9 % Sodium Chloride Flush 3 ML SYRINGE IVFLUSH ×3 (09:01→22:11)
[2021-07-21] MEDS: ondansetron HCL 4 MG/2 ML VIAL IVPUSH ×2 (09:01→22:14)
--- NOTE | 2021-07-21 11:56 | MHC.CM.PN ---
called and spoke to pts brother tomás [phone] who agrees withy dc plan of str pt filed hcp naming her brother referrals made
[2021-07-21] MEDS: traMADoL HCL 50 MG TABLET PO ×2 (13:35→22:11)
--- NOTE | 2021-07-21 15:57 | PM.IMPN ---
Progress Note: A&P (1) Hypertension: Status: Acute <Tressa Hilton NP - Last Filed: 07/21/21 16:11> (2) Alcohol withdrawal: Status: Acute <Tressa Hilton NP - Last Filed: 07/21/21 16:11> Assessment and Plan: 76 year old women admitted with alcohol withdrawl symptoms and electrolyte abnormalities Alcohol withdrawl Phenobarbitol protocol care team consult thiamine, MV, folic acid encourage oral intake? will add ativan for anxiety Hypernatremia. Resolved Likely from dehydration stop D5W Hypertension continue HCTZ, Lisinopril Mental health Continue home medications CARE team DISPO. DC to str when medically stable DVT prophylaxis with Lovenox Attending Dr. Guzman Full code <Tressa Hilton NP - Last Filed: 07/21/21 16:11> 76 year old women admitted with alcohol withdrawl symptoms and electrolyte abnormalities Alcohol withdrawl Phenobarbitol protocol care team consult thiamine, MV, folic acid encourage oral intake? will add ativan for anxiety Hypernatremia. Resolved Likely from dehydration stop D5W Hypertension continue HCTZ, Lisinopril Mental health Continue home medications CARE team DISPO. DC to str when medically stable DVT prophylaxis with Lovenox Attending Dr. Guzman Full code Attending Attestation: DOS: 07/21/21 Patient seen and examined. Case discussed with the mid-level provider. Agree with the assessment and plan as documented above. <Gasper Guzman MD - Last Filed: 07/22/21 16:10> Subjective Subjective Date of Service: 07/21/21 <Tressa Hilton NP - Last Filed: 07/21/21 16:11> 07/22/21 <Gasper Guzman MD - Last Filed: 07/22/21 16:10> Review of Systems Follow up alcohol withdrawl still feeling tremulous and anxious good appetite <Tressa Hilton NP - Last Filed: 07/21/21 16:11> Physical Exam Vital Signs: Vital Signs: Last Vital Signs Temp 98.1 F 07/21/21 15:09 Pulse 93 07/21/21 15:09 Resp 18 07/21/21 15:09 BP 141/72 H 07/21/21 15:09 Pulse Ox 97 07/21/21 15:09 Body Mass Index 24.2 <Tressa Hilton NP - Last Filed: 07/21/21 16:11> Appearing in no acute distress lung sounds are clear to auscultation heart regular rate rhythm, clear S1, S2 positive bowel sounds, abdomen is soft, nontender neuro patient is alert x3, no focal deficits <Tressa Hilton NP - Last Filed: 07/21/21 16:11> Objective Data Current Medications Acetaminophen (Acetaminophen 325 Mg Tablet) 650 mg PO Q6H PRN PRN Reason: Pain, Mild (Pain Scale 1-3) Last Admin: 07/21/21 00:12 Dose: 650 mg Documented by: Aspirin (Aspirin Enteric Coated 81 Mg Tablet.Dr) 81 mg PO DAILY [facility] Last Admin: 07/21/21 08:36 Dose: 81 mg Documented by: Enoxaparin Sodium (Enoxaparin Sodium 40 Mg/0.4 Ml Syringe) 40 mg SUBCUT Q24H [facility] Last Admin: 07/20/21 16:35 Dose: 40 mg Documented by: Folic Acid (Folic Acid 1 Mg Tablet) 1 mg PO DAILY [facility] Last Admin: 07/21/21 08:36 Dose: 1 mg Documented by: Medication (No Benzodiazepines) 1 each MISCELLANE DAILY [facility] Multivitamins/Vitamin C (Multivitamin Tablet) 1 tab PO BEDTIME [facility] Last Admin: 07/20/21 20:00 Dose: 1 tab Documented by: Ondansetron HCl (Ondansetron Hcl 4 Mg/2 Ml Vial) 4 mg IVPUSH Q8H PRN PRN Reason: Nausea and Vomiting Last Admin: 07/21/21 09:01 Dose: 4 mg Documented by: Pharmacy Consult (Consult Rx Perform Med Rec) 1 each MISCELLANE ONCE PRN PRN Reason: Consult order Phenobarbital (Phenobarbital 15 Mg Tablet) 45 mg PO BID [facility]; Protocol Stop: 07/21/21 21:01 Last Admin: 07/21/21 08:37 Dose: 45 mg Documented by: Phenobarbital (Phenobarbital 15 Mg Tablet) 15 mg PO BID [facility]; Protocol Stop: 07/23/21 21:01 Phenobarbital (Phenobarbital 15 Mg Tablet) 15 mg PO DAILY [facility]; Protocol Stop: 07/25/21 09:01 Sodium Chloride (0.9 % Sodium Chloride Flush 3 Ml Syringe) 3 ml IVFLUSH QSHIFT [facility] Last Admin: 07/21/21 09:01 Dose: 3 ml Documented by: Thiamine HCl (Thiamine Hcl 100 Mg Tablet) 100 mg PO DAILY [facility] Last Admin: 07/21/21 08:36 Dose: 100 mg Documented by: Tramadol HCl (Tramadol Hcl 50 Mg Tablet) 50 mg PO Q8H PRN PRN Reason: Pain Last Admin: 07/21/21 13:35 Dose: 50 mg Documented by: <Tressa Hilton NP - Last Filed: 07/21/21 16:11> Labs CBC & Chem 7: : 07/20/21 05:38 07/21/21 05:44 <Tressa Hilton NP - Last Filed: 07/21/21 16:11> Labs: Laboratory Results - last 24 hr 07/21/21 05:44 Anion Gap 10 L Estim Creat Clear Calc 59.2 Estimated GFR > 60 Random Glucose 112 Calcium 8.5 Magnesium 1.7 <Tressa Hilton NP - Last Filed: 07/21/21 16:11> Microbiology Microbiology Results: Microbiology 07/19/21 Unknown Urine clean catch - Urine ojseph top Urine Culture - Final <Tressa Hilton NP - Last Filed: 07/21/21 16:11> Quality Stroke Does the patient have a stroke diagnosis?: No <Tressa Hilton NP - Last Filed: 07/21/21 16:11> VTE Prior VTE?: No <Tressa Hilton NP - Last Filed: 07/21/21 16:11> VTE Risk Level:: Medical - moderate - high <Tressa Hilton NP - Last Filed: 07/21/21 16:11> VTE Device Contraindication: Treatment Not Indicated <Tressa Hilton NP - Last Filed: 07/21/21 16:11> VTE Drug Contraindication: N/A - Med Ordered <Tressa Hilton NP - Last Filed: 07/21/21 16:11>
[2021-07-21] MEDS: Enoxaparin Sodium 40 MG/0.4 ML SYRINGE SUBCUT (16:03)
[2021-07-21] MEDS: Multivitamin TABLET 1 TAB PO (22:11)
[2021-07-22] VITALS (8 sets, daily range): BP systolic 120–172; BP diastolic 61–89; PULSE 79–96; RESP 15–94; TEMP 36.4–37; O2SAT 98–100
[2021-07-22] MEDS: Acetaminophen 325 MG TABLET 650 MG PO ×3 (02:02→20:38)
[2021-07-22] MEDS: 0.9 % Sodium Chloride Flush 3 ML SYRINGE IVFLUSH ×2 (08:39→14:17)
[2021-07-22] MEDS: PHENobarbitaL 15 MG TABLET PO ×2 (08:39→20:37)
[2021-07-22] MEDS: Thiamine HCL 100 MG TABLET PO (08:39)
[2021-07-22] MEDS: Folic Acid 1 MG TABLET PO (08:39)
[2021-07-22] MEDS: Aspirin Enteric Coated 81 MG TABLET.DR PO (08:39)
[2021-07-22] MEDS: traMADoL HCL 50 MG TABLET PO (08:47)
--- NOTE | 2021-07-22 11:54 | HO.PM.IMPN ---
Subjective Subjective Date of Service: 07/22/21 <TAI Claudio - Last Filed: 07/22/21 13:56> 07/22/21 <Gasper Guzman MD - Last Filed: 07/22/21 16:27> Interval History: Seen and examined this morning No overnight event No specific complaints this morning. overall better than yesterday. <TAI Claudio - Last Filed: 07/22/21 13:56> Review of Systems Review of Systems: Yes all other systems are reviewed and are negative <TAI Claudio - Last Filed: 07/22/21 13:56> Constitutional Constitutional: Denies chills and Denies fever(s) <TAI Claudio - Last Filed: 07/22/21 13:56> Cardiovascular Cardiovascular: Denies chest pain <TAI Claudio - Last Filed: 07/22/21 13:56> Respiratory Respiratory: Denies cough <TAI Claudio - Last Filed: 07/22/21 13:56> Gastrointestinal Gastrointestinal: Denies abdominal pain <TAI Claudio - Last Filed: 07/22/21 13:56> Psychiatric Psychiatric: Reports anxiety <TAI Claudio - Last Filed: 07/22/21 13:56> Physical Exam Vital Signs: Vital Signs: Last Vital Signs Temp 98.2 F 07/22/21 10:51 Pulse 94 07/22/21 10:51 Resp 94 H 07/22/21 10:51 BP 172/88 H 07/22/21 10:51 Pulse Ox 99 07/22/21 10:51 Body Mass Index 24.2 <TAI Claudio - Last Filed: 07/22/21 13:56> Const: General: comfortable, no acute distress, alert, awake and anxious <TAI Claudio - Last Filed: 07/22/21 13:56> Nutritional Appearance: well nourished <TAI Claudio - Last Filed: 07/22/21 13:56> Orientation/consciousness: patient oriented x3 <TAI Claudio - Last Filed: 07/22/21 13:56> HENMT: Head: Yes normocephalic and Yes atraumatic <TAI Claudio - Last Filed: 07/22/21 13:56> Eyes: Sclerae: sclerae normal <TAI Claudio Last Filed: 07/22/21 13:56> Resp: Effort & Inspection: normal respiratory effort and no respiratory distress <TAI Claudio Last Filed: 07/22/21 13:56> Cardio: Rate: regular rate <TAI Claudio Last Filed: 07/22/21 13:56> Rhythm: regular rhythm <TAI Claudio Last Filed: 07/22/21 13:56> GI: Palpation (GI): Soft to palpation and nontender <TAI Claudio Last Filed: 07/22/21 13:56> Neuro: General: patient oriented x3 <TAI Claudio Last Filed: 07/22/21 13:56> Cranial nerves: Yes CN's II-XII intact bilaterally and Yes Bilaterally intact EOM present <TAI Claudio Last Filed: 07/22/21 13:56> Objective Data Active Medications Acetaminophen (Acetaminophen 325 Mg Tablet) 650 mg PO Q6H PRN PRN Reason: Pain, Mild (Pain Scale 1-3) Last Admin: 07/22/21 02:02 Dose: 650 mg Documented by: CLAUDIA Aspirin (Aspirin Enteric Coated 81 Mg Tablet.) 81 mg PO DAILY [facility] Last Admin: 07/22/21 08:39 Dose: 81 mg Documented by: TARIK Enoxaparin Sodium (Enoxaparin Sodium 40 Mg/0.4 Ml Syringe) 40 mg SUBCUT Q24H [facility] Last Admin: 07/21/21 16:03 Dose: 40 mg Documented by: BRENDA Folic Acid (Folic Acid 1 Mg Tablet) 1 mg PO DAILY [facility] Last Admin: 07/22/21 08:39 Dose: 1 mg Documented by: TARIK Medication (No Benzodiazepines) 1 each MISCELLANE DAILY [facility] Multivitamins/Vitamin C (Multivitamin Tablet) 1 tab PO BEDTIME [facility] Last Admin: 07/21/21 22:11 Dose: 1 tab Documented by: HO.GUSHMAZ Ondansetron HCl (Ondansetron Hcl 4 Mg/2 Ml Vial) 4 mg IVPUSH Q8H PRN PRN Reason: Nausea and Vomiting Last Admin: 07/21/21 22:14 Dose: 4 mg Documented by: CLAUDIA Pharmacy Consult (Consult Rx Perform Med Rec) 1 each MISCELLANE ONCE PRN PRN Reason: Consult order Phenobarbital (Phenobarbital 15 Mg Tablet) 15 mg PO BID [facility]; Protocol Stop: 07/23/21 21:01 Last Admin: 07/22/21 08:39 Dose: 15 mg Documented by: TARIK Phenobarbital (Phenobarbital 15 Mg Tablet) 15 mg PO DAILY [facility]; Protocol Stop: 07/25/21 09:01 Sodium Chloride (0.9 % Sodium Chloride Flush 3 Ml Syringe) [facility] Admin: 07/22/21 08:39 Dose: 3 ml Documented by: TARIK Thiamine HCl (Thiamine Hcl 100 Mg Tablet) 100 mg PO DAILY [facility] Last Admin: 07/22/21 08:39 Dose: 100 mg Documented by: TARIK Tramadol HCl (Tramadol Hcl 50 Mg Tablet) 50 mg PO Q8H PRN PRN Reason: Pain Last Admin: 07/22/21 08:47 Dose: 50 mg Documented by: TARIK <TAI Claudio - Last Filed: 07/22/21 13:56> Labs CBC & Chem 7: : 07/20/21 05:38 07/21/21 05:44 <TAI Claudio - Last Filed: 07/22/21 13:56> Assessment and Plan (1) Alcohol withdrawal: Status: Acute <TAI Claudio - Last Filed: 07/22/21 13:56> (2) Hypernatremia: Status: Acute <TAI Claudio - Last Filed: 07/22/21 13:56> Assessment and Plan: 76 year old women admitted with alcohol withdrawl symptoms and electrolyte abnormalities Alcohol withdrawl. Not in acute alcohol withdrawal at this time. Scoring 1-3 on ciwa scale for anxiety which is not r/t alcohol withdrawal. Continue Phenobarbitol protocol seen by care team continue thiamine, MV, folic acid addiction medicine consult Hypernatremia. Resolved Likely from dehydration stop D5W Hypertension continue HCTZ, Lisinopril Mental health/anxiety Continue home medications seen by CARE team DISPO. medically stable for discharge. seen by PT who recommended STR for transfer and gait training, therapeutic exercises, safety and balance due to gross deconditioning, muscle weakness, impaired range of motion in right upper extremity due to recent shoulder surgery among others. She had rotator cuff surgery 4 weeks ago, has not yet started PT and ambulates with walker which is difficult now due to decreased ROM and persistent pain of right shoulder. DVT prophylaxis with Lovenox Attending Dr. Guzman Full code <TAI Claudio - Last Filed: 07/22/21 13:56> 76 year old women admitted with alcohol withdrawl symptoms and electrolyte abnormalities Alcohol withdrawl. Not in acute alcohol withdrawal at this time. Scoring 1-3 on ciwa scale for anxiety which is not r/t alcohol withdrawal. Continue Phenobarbitol protocol seen by care team continue thiamine, MV, folic acid addiction medicine consult Hypernatremia. Resolved Likely from dehydration stop D5W Hypertension continue HCTZ, Lisinopril Mental health/anxiety Continue home medications seen by CARE team DISPO. medically stable for discharge. seen by PT who recommended STR for transfer and gait training, therapeutic exercises, safety and balance due to gross deconditioning, muscle weakness, impaired range of motion in right upper extremity due to recent shoulder surgery among others. She had rotator cuff surgery 4 weeks ago, has not yet started PT and ambulates with walker which is difficult now due to decreased ROM and persistent pain of right shoulder. DVT prophylaxis with Lovenox Attending Dr. Guzman Full code Attending Attestation: Patient seen and examined. Case discussed with the mid-level provider. Agree with the assessment and plan as documented above. <Gasper Guzman MD - Last Filed: 07/22/21 16:27> Quality Stroke Does the patient have a stroke diagnosis?: No <TAI Claudio - Last Filed: 07/22/21 13:56> VTE Prior VTE?: No <TAI Claudio - Last Filed: 07/22/21 13:56> VTE Risk Level:: Medical - moderate - high <TAI Claudio - Last Filed: 07/22/21 13:56> VTE Device Contraindication: Treatment Not Indicated <TAI Claudio Last Filed: 07/22/21 13:56> VTE Drug Contraindication: N/A - Med Ordered <TAI Claudio - Last Filed: 07/22/21 13:56>
--- NOTE | 2021-07-22 12:19 | MHC.CM.PN ---
Addendum entered by Marta Mora 07/22/21 14:27: Per SNF info faxed for PASSR. The result of review is pending. Original Note: Female 76 DX ETOH WD SS Per MD CIWA is 0. Patient has anxiety. Anxiety ss were documented on the CIWA, per MD. The accepting facility is requesting additional info to support STR. They also requested Addiction services notes. PT eval and note sent. The Recovery team documentation has also been sent to the facility. CM will follow.
--- NOTE | 2021-07-22 13:36 | PC.NURSE ---
Skin assessment complete. Patient has no skin issues or open areas at this time.
[2021-07-22] MEDS: hydrOXYzine HCL 25 MG TABLET PO ×2 (14:15→20:36)
[2021-07-22] MEDS: Sennosides/Docusate Sodium TABLET 1 TAB PO (14:30)
[2021-07-22] MEDS: Magnesium Oxide 400 MG TABLET PO (17:17)
[2021-07-22] MEDS: Enoxaparin Sodium 40 MG/0.4 ML SYRINGE SUBCUT (17:17)
--- NOTE | 2021-07-22 17:57 | PC.NURSE ---
PAIN TREATED WITH PRN MEDICATIONS. PATIENT STATED FEELING ANXIOUS. MD NOTIFED. PRN MEDICATION ORDERED AND ADMINISTERED WITH POSITIVE EFFECT. PATIENT STATED FEELING CONSTIPATED. MEDICATION ORDERED AND ADMINISTERED, EFFECTS PENDING. SEE EMAR.
[2021-07-22] MEDS: Multivitamin TABLET 1 TAB PO (20:36)
[2021-07-23] MEDS: traMADoL HCL 50 MG TABLET PO ×2 (01:37→10:59)
[2021-07-23] MEDS: 0.9 % Sodium Chloride Flush 3 ML SYRINGE IVFLUSH ×2 (01:38→08:05)
[2021-07-23 03:16] VITALS: BP 128/83; PULSE 85; RESP 17; TEMP 36.4; O2SAT 97
[2021-07-23] MEDS: Milk of Magnesia 30 ML ORAL.SUSP 15 ML PO ×2 (03:59→08:04)
[2021-07-23] MEDS: hydrOXYzine HCL 25 MG TABLET PO ×2 (03:59→12:38)
--- NOTE | 2021-07-23 06:07 | PC.NURSE ---
7p-7a shift - pt through shift c/o constipation previous shift medicated pt with sennakot and moving bowels in small amts of hardened stool. still c/o constipation - prune juice given without effect call placed to dr. brandon & pt medicated with milk of magnesia with some effect. also pt c/o pain R shoulder s/p rotator cuff surgery - medicated with tylenol and ultram with effect & rue elevated on pillow. also medicated prn with atarax for anxiety & ciwa 7-8 with effect of calm and decrease in tremors.
[2021-07-23 06:51] VITALS: BP 170/87; PULSE 95; RESP 20; TEMP 36; O2SAT 99
[2021-07-23 07:18] LABS: Anion Gap 10 (12-20); Blood Urea Nitrogen 18 mg/dL (9-16); Calcium 8.7 mg/dL (8.4-10.2); Carbon Dioxide 25 mmol/L (22-29); Chloride 108 mmol/L (96-108); Creatinine Clr Calc Pharmacy 62.5; Estimated Glomerular Filt Rate > 60; Glucose Random 94 mg/dL (60-115); Potassium 4.1 mmol/L (3.3-5.1); Sodium 139 mmol/L (135-145)
[2021-07-23] MEDS: Thiamine HCL 100 MG TABLET PO (08:05)
[2021-07-23] MEDS: Magnesium Oxide 400 MG TABLET PO (08:05)
[2021-07-23] MEDS: Folic Acid 1 MG TABLET PO (08:05)
[2021-07-23] MEDS: Sennosides/Docusate Sodium TABLET 1 TAB PO (08:05)
[2021-07-23] MEDS: PHENobarbitaL 15 MG TABLET PO (08:05)
[2021-07-23] MEDS: Aspirin Enteric Coated 81 MG TABLET.DR PO (08:05)
[2021-07-23 08:53] VITALS: BP 170/87; PULSE 95; O2SAT 99
[2021-07-23] MEDS: polyethylene glycoL 3350 17 GM POWD.PACK PO (10:49)
[2021-07-23] MEDS: Acetaminophen 325 MG TABLET 650 MG PO (10:49)
[2021-07-23 10:59] VITALS: PULSE 105; RESP 18; TEMP 36
--- NOTE | 2021-07-23 11:23 | P.DS_ITS ---
DS: Providers Provider Date of Service: 07/23/21 <TAI Claudio - Last Filed: 07/23/21 11:51> Date of admission: 07/19/21 15:41 <TAI Claudio - Last Filed: 07/23/21 11:51> Date of discharge: 07/23/21 <TAI Claudio - Last Filed: 07/23/21 11:51> Primary care physician: Valdo Taylor MD <TAI Claudio - Last Filed: 07/23/21 11:51> Consults: 07/19/21 15:46 Consult to Care Team Routine Comment: Reason for consultation: alcohol abuse 07/22/21 11:59 Addiction Medicine Routine Consulting Provider: Queenie Fofana Reason for consultation: alcohol use disorder; seen by care team; facility requesting eval Has provider been notified: No <TAI Claudio - Last Filed: 07/23/21 11:51> Attending physician on discharge: Gasper Guzman <TAI Claudio - Last Filed: 07/23/21 11:51> Discharging clinician: Missy Chu <TAI Claudio - Last Filed: 07/23/21 11:51> DS: Diagnosis Discharge Diagnosis (1) Alcohol withdrawal: Status: Acute <TAI Claudio - Last Filed: 07/23/21 11:51> (2) Hypernatremia: Status: Acute <TAI Claudio - Last Filed: 07/23/21 11:51> DS: Summary Hospital Course Hospital Course: From H&P on day of admission 76 year old women presenting with hand tremors and increase in alcohol intake. She reported that she has had more stress in her life and has been drinking more than a sleeve of alcohol a day. She reported that she is interested in detox and has been feeling very tremulous. She denied injury, chest pain, sob,? nausea, vomiting, diarrhea.? Her sodium was noted to be elevated at 148, alcohol level 180. She is noted to be tachycardic and hypertensive.? She was given, lorazepam, 1 L IV fluids and was started on phenobarbital.? She will be admitted for further management and treatment acute alcohol withdrawal. Alcohol withdrawl. Patient was started on the phenobarbitol protocol and admitted to the telemetry floor. She was started on Multivitamin and supplementation with thiamine and folate. Her tremors improved, although she remained anxious. 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 She was educated regarding recovery resources and declined resources. She was started on prn atarax which seemed to improve her anxiety symptoms. She was counselled regarding the importance of alcohol cessation. Her course was complicated by hypomagnesemia which improved after replacement. She had one short burst of atrial tachycardia which was asymptomatic. There have been no recurrent episodes. She was evaluated by Physical therapy who recommended SNF for ongoing physical therapy. She is not currently withdrawing from alcohol and is stable for discharge to detention facility for physical therapy. Attending Attestation: I have personally seen and examined the patient independently, reviewed the NPP history, exam and?MDM and agree with the assessment and plan as?written <TAI Claudio - Last Filed: 07/23/21 11:51> Time Spent with Patient Time attestation: Total time spent providing and/or coordinating discharge services: <TAI Claudio Last Filed: 07/23/21 11:51> Discharge coordination time: Greater than 30 minutes <TAI Claudio Last Filed: 07/23/21 11:51> Quality: Stroke Does the patient have a stroke diagnosis?: No <TAI Claudio Last Filed: 07/23/21 11:51> Physical Exam Vital Signs: Vital Signs: Last Vital Signs Temp 96.8 F 07/23/21 10:59 Pulse 105 H 07/23/21 10:59 Resp 18 07/23/21 10:59 BP 170/87 H 07/23/21 08:53 Pulse Ox 99 07/23/21 08:53 Body Mass Index 24.2 <TAI Claudio Last Filed: 07/23/21 11:51> Const: General: comfortable, no acute distress, alert and awake <TAI Claudio Last Filed: 07/23/21 11:51> Nutritional Appearance: well nourished <TAI Claudio Last Filed: 07/23/21 11:51> Orientation/consciousness: patient oriented x3 <TAI Claudio - Last Filed: 07/23/21 11:51> HENMT: Head: Yes normocephalic and Yes atraumatic <TAI Claudio - Last Filed: 07/23/21 11:51> Eyes: Sclerae: sclerae normal <TAI Claudio - Last Filed: 07/23/21 11:51> Resp: Effort & Inspection: normal respiratory effort and no respiratory distress <TAI Claudio - Last Filed: 07/23/21 11:51> Cardio: Rate: regular rate <TAI Claudio - Last Filed: 07/23/21 11:51> Rhythm: regular rhythm <TAI Claudio - Last Filed: 07/23/21 11:51> GI: Palpation (GI): Soft to palpation and nontender <TAI Claudio - Last Filed: 07/23/21 11:51> Neuro: General: patient oriented x3 <TAI Claudio - Last Filed: 07/23/21 11:51> Cranial nerves: Yes CN's II-XII intact bilaterally and Yes Bilaterally intact EOM present <TAI Claudio - Last Filed: 07/23/21 11:51> DS: Data Data Completed and Pending Labs on day of discharge: Laboratory Results - last 24 hr 07/23/21 05:58 Sodium 139 Potassium 4.1 Chloride 108 Carbon Dioxide 25 Anion Gap 10 L BUN 18 H D Creatinine 0.71 Estim Creat Clear Calc 62.5 Estimated GFR > 60 Random Glucose 94 Calcium 8.7 Magnesium 2.0 <TAI Claudio - Last Filed: 07/23/21 11:51> Discharge Plan Discharge Patient Disposition: Xfer SNF <TAI Claudio - Last Filed: 07/23/21 11:51> Discharge Diagnosis: Alcohol withdrawal <TAI Claudio Last Filed: 07/23/21 11:51> Alcohol withdrawal <Gasper Guzman MD - Last Filed: 07/23/21 12:42> Referrals: [facility] [Outside] - 1 Week Valdo Taylor MD [Primary Care Provider] - 2 days <TAI Claudio - Last Filed: 07/23/21 11:51> Discharge Medications: New multivitamin [Daily-Gato] Tablet 1 tab PO BEDTIME Qty: 30 RF: 0 folic acid 1 mg Tablet 1 mg PO DAILY Qty: 30 RF: 0 thiamine mononitrate (vit B1) 100 mg Tablet 100 mg PO DAILY Qty: 30 RF: 0 hydroxyzine HCl 25 mg Tablet 25 mg PO Q6H PRN (Reason: Anxiety) Qty: 1 RF: 0 polyethylene glycol 3350 17 gram Powder In Packet 17 g PO DAILY Qty: 1 RF: 0 sennosides-docusate sodium [Senna Plus] 8.6-50 mg Tablet 1 tab PO DAILY Qty: 1 RF: 0 Continued lisinopril 10 mg tablet 1 tab PO DAILY RF: 0 hydrochlorothiazide 25 mg tablet 1 tab PO QAM RF: 0 tramadol 50 mg tablet 1 tab PO Q8H PRN (Reason: Pain) RF: 0 aspirin 81 mg Tablet,Delayed Release (Dr/Ec) 81 mg PO DAILY RF: 0 Discontinued ibuprofen 800 mg tablet 1 tab PO TID PRN (Reason: Pain) RF: 0 <TAI Claudio - Last Filed: 07/23/21 11:51> Discharge Orders: Discharge Order (Routine); Ordered 07/23/21 Ordered By: Missy Chu <TAI Claudio - Last Filed: 07/23/21 11:51> Diet: advance to usual diet <TAI Claudio - Last Filed: 07/23/21 11:51> advance to usual diet <Gasper Guzman MD - Last Filed: 07/23/21 12:42> Activity on Discharge: As tolerated <TAI Claudio - Last Filed: 07/23/21 11:51> As tolerated <Gasper Guzman MD - Last Filed: 07/23/21 12:42> Stand Alone Forms: Patient Portal Discharge page <TAI Claudio - Last Filed: 07/23/21 11:51> Care Plan Goals: stay healthy and out of the hospital. abstain from alcohol. <TAI Claudio - Last Filed: 07/23/21 11:51> Health Concerns: Alcohol withdrawal Anxiety <TAI Claudio - Last Filed: 07/23/21 11:51> Plan of Treatment: discharge to SNF for PT/rehab abstain from alcohol <TAI Claudio - Last Filed: 07/23/21 11:51> Assessment: See discharge summary <TAI Claudio - Last Filed: 07/23/21 11:51> Patient Instructions: Abuse of Alcohol (ED) <TAI Claudio - Last Filed: 07/23/21 11:51>
--- NOTE | 2021-07-23 11:31 | MHC.CM.PN ---
PT SCHEDULED TO DC TO [facility] [place] TODAY AT 1300 HOURS [facility]IA [facility]. VM MESSAGE LEFT FOR PTS BROTHER/HCP, MISHA ([phone])
== END 2021-07-23 14:15 | disposition skilled nursing facility (03) | DRG 641 ==
LOC: HO.ED 13:53 → HO.EDOVER 15:51 → HO.IMC 19:25
PROVIDERS: Admitting Provider Nurse Practitioner Acute Care; Emergency Provider Emergency Medicine; PCP Internal Medicine; Visit Provider Physician Assistant Medical
DX: E87.0 Hyperosmolality and hypernatremia (principal); F10.239 Alcohol dependence with withdrawal, unspecified; I10 Essential (primary) hypertension; Z20.822 Contact with and (suspected) exposure to COVID-19; E86.0 Dehydration; F41.9 Anxiety disorder, unspecified; Z79.82 Long term (current) use of aspirin; Z79.891 Long term (current) use of opiate analgesic; Z79.899 Other long term (current) drug therapy
CPT/HCPCS: 36415; 80048; 81001; 82077; 83690; 83735; 85025; 87086; 87635; 96361; 96372; 96374; 96376; 97116; 97161; 99285; J1650; J2060; J2405; J2560

== ENCOUNTER 2022-06-13 19:56 | Inpatient (IN) | payer OTHER, SELFPAY ==
--- NOTE | ~2022-06-13 | CT_ITS ---
EXAMINATION: CT HEAD WITHOUT CONTRAST CLINICAL INFORMATION: Wernicke-Korsakoff syndrome. COMPARISON: None available. TECHNIQUE: Contiguous axial imaging was performed from the skull base to vertex without intravenous administration of contrast. This CT examination was performed using dose optimization techniques as appropriate, variously including the following: *Automated exposure control. *Adjustment of mA and/or kV according to patient size (this includes techniques or standardized protocols for targeted exams where dose is matched to indication/reason for exam; i.e. extremities or head). *Use of iterative reconstruction technique. DLP: 562 mGy-cm FINDINGS: There is no evidence of acute intracranial hemorrhage or edematous territorial infarction. Rodríguez-white matter differentiation is preserved. A few foci of hypoattenuation in the periventricular and deep white matter are consistent with mild microangiopathy. Proportional prominence of the ventricles and sulcal spaces without evidence of obstructive hydrocephalus. No abnormal mass effect or midline shift. No extra-axial fluid collections. No acute soft tissue or osseous abnormalities. Nonspecific 1.3 cm sclerotic focus within the marrow cavity of the right aspect of the occipital bone (potentially representing a large bone island. No associated cortical disruption. The mastoid air cells and visualized paranasal sinuses are clear. Moderate to advanced degenerative arthropathy of the right temporomandibular joint. Moderate degenerative arthropathy of the left temporomandibular joint. CT/CT head/brain wo IV con IMPRESSION: 1. No evidence of acute intracranial hemorrhage or edematous territorial infarction. 2. Mild underlying microangiopathy and generalized cerebral volume loss. No overt CT evidence of pattern of white matter/deep rodríguez matter changes to correlate with the presenting history of Wernicke-Korsakoff syndrome (although demonstration of these changes may be limited by CT).
[2022-06-13 21:10] VITALS: BMI 22.6
[2022-06-13 21:52] VITALS: BP 92/62; PULSE 93; TEMP 36.7; O2SAT 100
[2022-06-13] MEDS: traZODone HCL 50 MG TABLET PO (21:55)
--- NOTE | 2022-06-13 22:36 | PC.ADMIT ---
Patient arrived on unit at 2100 via stretcher from [facility]. Patient was met outside unit where she signed CV. Patient presented as alert and oriented x4. Pleasant and cooperative. Good eye contact. Memory appeared intact. Patient was dressed in hospital attire. Upon admission to unit Patient height and weight were obtained. Vital signs taken. VSS stable. Diagnosis Substance/Medication Induced Depressive Disorder/Alcohol. Patient oriented to unit. JUAN JOSE's signed. Patient endorses desire to receive treatment and states, I need to get my meds straight. Patient medicated with Trazadone 50 mg. with effect.
[2022-06-14 07:45] VITALS: BP 128/76; PULSE 89; RESP 16; TEMP 36.8; O2SAT 100
[2022-06-14] MEDS: ARIPiprazole 2 MG TABLET PO (08:35)
[2022-06-14] MEDS: lisinopriL 10 MG TABLET PO (08:35)
[2022-06-14] MEDS: buPROPion HCl XL 150 MG TAB.ER.24H PO (08:35)
[2022-06-14] MEDS: risperiDONE 0.5 MG TABLET PO (08:35)
[2022-06-14] MEDS: hydroCHLOROthiazide 25 MG TABLET PO (08:35)
[2022-06-14 08:56] LABS: Estimated Average Glucose 100 mg/dL; Hemoglobin A1c % 5.1 %
[2022-06-14 09:07] LABS: Cholesterol 217 mg/dL; HDL Cholesterol 51 mg/dL; LDL Cholesterol Calculated 138 mg/dl; Magnesium 1.9 mg/dL (1.6-2.6); Triglycerides 140 mg/dL
[2022-06-14 09:30] LABS: Free T4 (Free Thyroxine) 0.99 ng/dL (0.71-1.85); Thyroid Stimulating Hormone 0.31 uIU/mL (0.32-4.0)
[2022-06-14] MEDS: Acetaminophen 325 MG TABLET 650 MG PO ×2 (09:56→20:53)
[2022-06-14] MEDS: Milk of Magnesia 30 ML ORAL.SUSP PO (10:08)
[2022-06-14 10:09] LABS: Folate 11.7 ng/mL (> or = 4.0); Vitamin B12 638 pg/mL (200-900)
[2022-06-14] MEDS: hydrOXYzine HCL 25 MG TABLET PO ×2 (10:10→18:21)
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
[2022-06-14 18:00] VITALS: BP 101/60; PULSE 104; RESP 16; TEMP 36.8; O2SAT 97
--- NOTE | 2022-06-14 19:07 | P.CONHOSP_ITS ---
History of Present Illness Data of Consult Service Date: 06/14/22 Primary Care Provider: Unknown Physician [facility] Reason for consult: Medical management This is a 77-year-old female with pertinent history of alcohol use disorder, fibromyalgia, mood disorder who is admitted to the geriatric psychiatric unit. Patient was initially admitted to [facility] with blood alcohol level of 160 and transferred to geriatric psych unit for further evaluation and management. Hospitalist group consulted for management of chronic medical conditions. Patient states she was diagnosed with fibromyalgia 6 years ago. As per the patient, she failed gabapentin and Lyrica and states that the only thing that helps her is tramadol. Also has hypertension, insomnia and mood disorder and is compliant with her medications. She also has had right rotator cuff shoulder repair and states that the surgery did not improve her shoulder pain. At the time of my evaluation, she is alert, oriented to self, place, time and person. No hallucinations but admits generalized pain due to fibromyalgia and pain during active and passive rotation of right shoulder. Review of Systems Review of Systems: All 13 review of systems are negative except as noted in HPI [facility] Medical History (Updated 06/14/22 @ 19:32 by Bettina Enamorado MD) Alcoholic Alcoholic intoxication Fibromyalgia Hypertension Family History Mother Alzheimer disease Social History Household Members: None Housing: Apartment Do you presently have visiting nurse or other home services: Yes (Has a home health aide.) Alcohol intake: current Alcohol intake frequency: 3 or more drinks per day Patient Tobacco Use Status: Never used Tobacco Use of substances other than those prescribed or required for medical reasons: No Currently Displaying Signs/Symptoms of Drug Intoxication Withdrawal: No Any prior treatment program specific to substance use: No Have you been hit, kicked, punched, or otherwise hurt by someone within the past year? If so, by whom?: No Do you feel safe in your current relationship?: No Current Relationship Is there a partner from a previous relationship who is making you feel unsafe now?: No Are you made to feel afraid or neglected: No Advance Directives: No Advance Directives Information Provided: No Do you have thoughts of harming others: None Do you have a plan to hurt others: No Plan Recently lost weight without trying: No How much weight loss: Not applicable Eating poorly because of decreased appetite: No Nutrition screen score: 0 Nutrition Risks: Dental problems Patient : No : No Poor oral hygiene: No service: No Current occupational status: retired Sexual orientation: Straight/Heterosexual Meds Allergies Allergy/AdvReac Type Severity Reaction Status Date / Time No Known Allergies Allergy Verified 07/07/21 15:27 Active Medications: Current Medications Acetaminophen (Acetaminophen 325 Mg Tablet) 650 mg PO Q6H PRN PRN Reason: Headache/Pain Mild Scale (1-3) Last Admin: 06/14/22 09:56 Dose: 650 mg Al Hydroxide/Mg Hydroxide (Magnesium Hydrox/Alum Hydrox 30 Ml Oral.Susp) 30 ml PO Q6H PRN PRN Reason: Heartburn/Nausea Aripiprazole (Aripiprazole 2 Mg Tablet) 2 mg PO DAILY [facility] Last Admin: 06/14/22 08:35 Dose: 2 mg Bupropion HCl (Bupropion Hcl Xl 150 Mg Tab.Er.24h) 150 mg PO DAILY [facility] Last Admin: 06/14/22 08:35 Dose: 150 mg Docusate Sodium (Docusate Sodium 100 Mg Capsule) 100 mg PO DAILY PRN PRN Reason: constipation Hydrochlorothiazide (Hydrochlorothiazide 25 Mg Tablet) 25 mg PO DAILY [facility]; Protocol Last Admin: 06/14/22 08:35 Dose: 25 mg Hydroxyzine HCl (Hydroxyzine Hcl 25 Mg Tablet) 25 mg PO Q6H PRN PRN Reason: Anxiety Last Admin: 06/14/22 18:21 Dose: 25 mg Lisinopril (Lisinopril 10 Mg Tablet) 10 mg PO DAILY [facility]; Protocol Last Admin: 06/14/22 08:35 Dose: 10 mg Magnesium Hydroxide (Milk Of Magnesia 30 Ml Oral.Susp) 30 ml PO DAILY PRN PRN Reason: Constipation Last Admin: 06/14/22 10:08 Dose: 30 ml Melatonin (Melatonin 3 Mg Tablet) 3 mg PO BEDTIME PRN PRN Reason: Sleep Risperidone (Risperidone 0.5 Mg Tablet) 0.5 mg PO DAILY [facility] Last Admin: 06/14/22 08:35 Dose: 0.5 mg Trazodone HCl (Trazodone Hcl 100 Mg Tablet) 200 mg PO BEDTIME PRN PRN Reason: Insomnia Home Medications Medication Instructions Recorded Confirmed Last Taken Type lisinopril 10 mg tablet 1 tab PO DAILY 07/16/21 06/14/22 07/19/21 History aripiprazole 2 mg tablet 2 mg PO DAILY 06/14/22 06/14/22 Unknown History bupropion HCl 150 mg tablet,12 hr 150 mg PO QAM 06/14/22 06/14/22 Unknown History sustained-release disulfiram 250 mg tablet 250 mg PO DAILY 06/14/22 06/14/22 Unknown History docusate sodium 100 mg tablet 100 mg PO DAILY PRN Constipation 06/14/22 06/14/22 Unknown History hydrochlorothiazide 25 mg tablet 25 mg PO DAILY 06/14/22 06/14/22 Unknown History tramadol 50 mg tablet 50 mg PO Q8H PRN Pain, Moderate 06/14/22 06/14/22 Unknown History trazodone 100 mg tablet 200 mg PO BEDTIME 06/14/22 06/14/22 Unknown History Physical Exam Vital Signs and Narrative: Vital Signs: Last Vital Signs Temp 98.2 F 06/14/22 07:45 Pulse 89 06/14/22 07:45 Resp 16 06/14/22 07:45 BP 128/76 06/14/22 07:45 Pulse Ox 100 06/14/22 07:45 O2 Del Method 06/14/22 07:45 BMI result Body Mass Index 22.6 Elderly male sitting up in chair in no distress Neck supple, no JVD Regular rate and rhythm, S1-S2 heard Regular breath sounds bilaterally, no wheezing or crackles appreciated Abdomen soft nontender, no guarding, no rigidity Patient is awake, alert and oriented to self, place, time and person ; no focal motor deficits ; multiple points of tenderness over right shoulder and bilateral lower extremities including hip, thigh ; no nystagmus, ataxia, ophthalmoplegia No pedal edema Results Labs Labs: Laboratory Results - last 24 hr 06/14/22 06/14/22 06/14/22 08:13 08:13 08:13 Estimat Average Glucose 100 Hemoglobin A1c % 5.1 Magnesium 1.9 Triglycerides 140 Cholesterol 217 LDL Cholesterol, Calc 138 HDL Cholesterol 51 Vitamin B12 638 Folate 11.7 TSH 0.31 L Free T4 0.99 Assessment and Plan (1) Fibromyalgia: Status: Acute (2) Alcohol use disorder, mild, abuse: Status: Acute (3) Mood disorder: Status: Acute (4) Hypertension: Status: Acute Plan #. Fibromyalgia: Patient states she failed/did not tolerate outpatient gabapentin and Lyrica. Does not want to retry gabapentin. Okay to use acetaminophen or tramadol, alone or in combination, especially if patient requires additional pain relief on temporary basis for disease exacerbation. Avoid NSAIDs or steroids. May benefit from adding SSRIs/SNRIs. #. Insomnia: On trazodone #. Essential hypertension: On lisinopril and hydrochlorothiazide and blood pressure well controlled. #. Mood disorder: Medications as per psych Labs pending. Thank you for the consult. Please call if we can help.
[2022-06-14] MEDS: traZODone HCL 100 MG TABLET 200 MG PO (20:51)
[2022-06-14] MEDS: Melatonin 3 MG TABLET PO (20:52)
[2022-06-15 07:45] VITALS: BP 123/63; PULSE 99; RESP 17; TEMP 35.9; O2SAT 98
[2022-06-15] MEDS: buPROPion HCl XL 150 MG TAB.ER.24H PO (07:53)
[2022-06-15] MEDS: ARIPiprazole 2 MG TABLET PO (07:53)
[2022-06-15] MEDS: lisinopriL 10 MG TABLET PO (07:53)
[2022-06-15] MEDS: risperiDONE 0.5 MG TABLET PO ×2 (07:53→20:19)
[2022-06-15] MEDS: hydroCHLOROthiazide 25 MG TABLET PO (07:53)
[2022-06-15] MEDS: Acetaminophen 325 MG TABLET 650 MG PO ×2 (07:54→20:16)
[2022-06-15 08:03] LABS: MANUAL DIFF FLAG NO
[2022-06-15 08:08] LABS: Basophils Percent Auto 0.5 % (0-2); Eosinophils Absolute Auto 0.1 X10*3/uL (0.0-0.4); Eosinophils Percent Auto 2.3 % (0-4); Hematocrit 37.5 % (37.0-47.0); Imm Gran Abs Auto 0.01 X10*3/uL (0.00-0.03); Imm Gran Pct Auto 0.2 % (0.0-0.4); Lymphocytes Percent Auto 23.2 % (20-40); Mean Corpuscular HGB Conc 34.7 g/dl (31.0-35.0); Mean Corpuscular Hemoglobin 32.3 pg (27.0-33.0); Mean Corpuscular Volume 93.3 fL (80.0-98.0); Mean Platelet Volume 9.1 fL (9.4-12.3); Monocytes Absolute Auto 0.4 X10*3/uL (0.1-1.2); Monocytes Percent Auto 9.7 % (2-11); Neutrophils Absolute Auto 2.9 x10*3/uL (2.0-8.3); Neutrophils Percent Auto 64.1 % (45-73); Platelet Count 262 X10*3/uL (160-400); Red Blood Count 4.02 X10*6/uL (4.20-5.50); Red Cell Distribution Width 12.2 % (11.0-16.0); White Blood Count 4.4 X10*3/uL (4.8-10.8)
[2022-06-15] MEDS: Milk of Magnesia 30 ML ORAL.SUSP PO (08:12)
--- NOTE | 2022-06-15 09:51 | P.PNPSI_ITS ---
Subjective Subjective Date of Service: 06/15/22 Reason For Visit: anxiety Subjective Notes: Conditional Voluntary Interim History: the nursing staff reported the patient showered after breakfast and she ate 100% of her meals. She remains anxious and she took Atarax twice yesterday. She complains of pain of fibromyalgia and the nursing staff checked and apparen tly she was receiving tramadol 3 times a day [facility]. She slept 8 hours. On interview the patient reports that she is feeling better but still anxious and it seems paranoid. Mental Status Exam Mental Status Exam Patient Appearance: Well Grooomed Patient Orientation: Person, Place and Situation Level of Consciousness: Awake Patient Behavior: Cooperative Mood Description: Constricted Affect Description: Labile Patient Cognition Impaired: Yes Ability to Follow Directions: Good Speech Pattern: Clear Hallucinations: None Delusions: Not Present Thought Process: Distracted Thought Content: positive for Circumstantial Judgement: Fair Diagnostics Vital Signs (24Hr): Vital Signs - 24 hr 06/14/22 18:00 06/15/22 07:45 Temperature 98.2 F 96.7 F L Pulse Rate 104 H 99 Respiratory Rate 16 17 Blood Pressure 101/60 123/63 Pulse Oximetry 97 98 Oxygen Delivery Method Room Air Room Air BMI result Body Mass Index 22.6 Labs Results: 06/15/22 08:00 Labs: Laboratory Results - last 48 hr 06/14/22 06/14/22 06/14/22 08:13 08:13 08:13 WBC RBC Hgb Hct MCV MCH MCHC RDW Plt Count MPV Immature Gran % (Auto) Neut % (Auto) Lymph % (Auto) [place] % (Auto) Eos % (Auto) Baso % (Auto) Lymph # (Auto) [place] # (Auto) Eos # (Auto) Baso # (Auto) Abs Immat Gran (auto) Absolute Neuts (auto) Absolute Nucleated RBC Nucleated RBC % (auto) Estimat Average Glucose 100 Hemoglobin A1c % 5.1 Magnesium 1.9 Triglycerides 140 Cholesterol 217 LDL Cholesterol, Calc 138 HDL Cholesterol 51 Vitamin B12 638 Folate 11.7 TSH 0.31 L Free T4 0.99 06/15/22 08:00 WBC 4.4 L RBC 4.02 L Hgb 13.0 Hct 37.5 MCV 93.3 MCH 32.3 MCHC 34.7 RDW 12.2 Plt Count 262 MPV 9.1 L Immature Gran % (Auto) 0.2 Neut % (Auto) 64.1 Lymph % (Auto) 23.2 [place] % (Auto) 9.7 Eos % (Auto) 2.3 Baso % (Auto) 0.5 Lymph # (Auto) 1.0 L [place] # (Auto) 0.4 Eos # (Auto) 0.1 Baso # (Auto) 0.0 Abs Immat Gran (auto) 0.01 Absolute Neuts (auto) 2.9 Absolute Nucleated RBC 0.000 Nucleated RBC % (auto) 0.0 Estimat Average Glucose Hemoglobin A1c % Magnesium Triglycerides Cholesterol LDL Cholesterol, Calc HDL Cholesterol Vitamin B12 Folate TSH Free T4 Imaging Radiology Impressions: ITS Impressions Head CT 06/14/22 18:08 IMPRESSION: 1. No evidence of acute intracranial hemorrhage or edematous territorial infarction. 2. Mild underlying microangiopathy and generalized cerebral volume loss. No overt CT evidence of pattern of white matter/deep joseph matter changes to correlate with the presenting history of Wernicke-Korsakoff syndrome (although demonstration of these changes may be limited by CT). Medications Medications Current Medications Acetaminophen (Acetaminophen 325 Mg Tablet) 650 mg PO Q6H PRN PRN Reason: Headache/Pain Mild Scale (1-3) Last Admin: 06/15/22 07:54 Dose: 650 mg Al Hydroxide/Mg Hydroxide (Magnesium Hydrox/Alum Hydrox 30 Ml Oral.Susp) 30 ml PO Q6H PRN PRN Reason: Heartburn/Nausea Aripiprazole (Aripiprazole 2 Mg Tablet) 2 mg PO DAILY [facility] Last Admin: 06/15/22 07:53 Dose: 2 mg Bupropion HCl (Bupropion Hcl Xl 150 Mg Tab.Er.24h) 150 mg PO DAILY [facility] Last Admin: 06/15/22 07:53 Dose: 150 mg Docusate Sodium (Docusate Sodium 100 Mg Capsule) 100 mg PO DAILY PRN PRN Reason: constipation Hydrochlorothiazide (Hydrochlorothiazide 25 Mg Tablet) 25 mg PO DAILY [facility]; Protocol Last Admin: 06/15/22 07:53 Dose: 25 mg Hydroxyzine HCl (Hydroxyzine Hcl 25 Mg Tablet) 25 mg PO Q6H PRN PRN Reason: Anxiety Last Admin: 06/14/22 18:21 Dose: 25 mg Lisinopril (Lisinopril 10 Mg Tablet) 10 mg PO DAILY [facility]; Protocol Last Admin: 06/15/22 07:53 Dose: 10 mg Magnesium Hydroxide (Milk Of Magnesia 30 Ml Oral.Susp) 30 ml PO DAILY PRN PRN Reason: Constipation Last Admin: 06/15/22 08:12 Dose: 30 ml Melatonin (Melatonin 3 Mg Tablet) 3 mg PO BEDTIME PRN PRN Reason: Sleep Last Admin: 06/14/22 20:52 Dose: 3 mg Risperidone (Risperidone 0.5 Mg Tablet) 0.5 mg PO DAILY [facility] Last Admin: 06/15/22 07:53 Dose: 0.5 mg Trazodone HCl (Trazodone Hcl 100 Mg Tablet) 200 mg PO BEDTIME PRN PRN Reason: Insomnia Last Admin: 06/14/22 20:51 Dose: 200 mg Allergies Allergies Allergy/AdvReac Type Severity Reaction Status Date / Time No Known Allergies Allergy Verified 07/07/21 15:27 Assessment & Plan Assessment & Plan (1) Fibromyalgia: Status: Acute Code(s): M79.7 - Fibromyalgia (2) Alcohol use disorder, mild, abuse: Status: Acute Code(s): F10.10 - Alcohol abuse, uncomplicated (3) Mood disorder: Status: Acute Code(s): F39 - Unspecified mood [affective] disorder (4) Hypertension: Status: Acute Code(s): I10 - Essential (primary) hypertension Plan #. Fibromyalgia: Patient states she failed/did not tolerate outpatient gabapentin and Lyrica. Does not want to retry gabapentin. Okay to use acetaminophen or tramadol, alone or in combination, especially if patient requires additional pain relief on temporary basis for disease exacerbation. Avoid NSAIDs or steroids. May benefit from adding SSRIs/SNRIs. #. Insomnia: On trazodone . We will increase up to 100 mg p.o. q.h.s. #. Essential hypertension: On lisinopril and hydrochlorothiazide and blood pressure well controlled. #. Mood disorder: Medications as per psych tramadol will be restarted up to 50 mg p.o. t.i.d. p.r.n. pain I spent ___20___ minutes with the patient and/or on the patient floor today, greater than?50% of which was spent counseling/coordinating care. Reason for contiued inpatient stay Substantial Risk for: inability to function, rapid decompensation and med/psych decompensation
[2022-06-15] MEDS: hydrOXYzine HCL 25 MG TABLET PO ×2 (10:24→22:59)
[2022-06-15] MEDS: traMADoL HCL 50 MG TABLET PO (15:51)
[2022-06-15 18:00] VITALS: BP 107/66; PULSE 97; RESP 16; TEMP 36.6; O2SAT 100
[2022-06-15] MEDS: traZODone HCL 100 MG TABLET 200 MG PO ×2 (20:17→22:59)
[2022-06-15] MEDS: Melatonin 3 MG TABLET PO (20:23)
[2022-06-16 06:00] VITALS: BP 120/76; PULSE 96; RESP 17; TEMP 35.9; O2SAT 97
[2022-06-16] MEDS: hydroCHLOROthiazide 25 MG TABLET PO (08:04)
[2022-06-16] MEDS: lisinopriL 10 MG TABLET PO (08:04)
[2022-06-16] MEDS: buPROPion HCl XL 150 MG TAB.ER.24H PO (08:04)
[2022-06-16] MEDS: risperiDONE 0.5 MG TABLET PO (08:04)
[2022-06-16] MEDS: traMADoL HCL 50 MG TABLET PO ×2 (08:14→19:46)
[2022-06-16] MEDS: Milk of Magnesia 30 ML ORAL.SUSP PO (10:58)
--- NOTE | 2022-06-16 13:37 | HO.PSYCHPN ---
Subjective Subjective Date of Service: 06/16/22 Reason For Visit: anxiety Subjective Notes: Conditional Voluntary Interim History: the nursing staff reported that the patient has been compliant with treatment but she has very poor sleep. The occupational therapist reported that she has pressured speech and she attends to groups but she could not focus very well. She was very frustrated because she could not do the [place] test she was angry and tearful at times. The social services director reported that the patient does not have formal support in the community and according to the property insurance claims examiner, the patient has been noncompliant with treatment and used to abuse alcohol. On interview the patient reports that she still restless and anxious and she has poor sleep so we will increase Risperdal as a mood stabilizer. It seems the patient has hypomanic symptoms with depression. Mental Status Exam Mental Status Exam Patient Appearance: Well Grooomed Patient Orientation: Person Mood Description: Calm Affect Description: Constricted Patient Cognition Impaired: Yes Ability to Follow Directions: Good Speech Pattern: Clear and Rapid Hallucinations: None Delusions: Paranoid Ideation Thought Process: Distracted Thought Content: positive for [place] Judgement: Fair Diagnostics Vital Signs (24Hr): Vital Signs - 24 hr 06/15/22 18:00 06/16/22 06:00 Temperature 97.8 F 96.6 F L Pulse Rate 97 96 Respiratory Rate 16 17 Blood Pressure 107/66 120/76 Pulse Oximetry 100 97 Oxygen Delivery Method Room Air Room Air BMI result Body Mass Index 22.6 Labs Results: 06/15/22 08:00 Labs: Laboratory Results - last 48 hr 06/15/22 08:00 WBC 4.4 L RBC 4.02 L Hgb 13.0 Hct 37.5 MCV 93.3 MCH 32.3 MCHC 34.7 RDW 12.2 Plt Count 262 MPV 9.1 L Immature Gran % (Auto) 0.2 Neut % (Auto) 64.1 Lymph % (Auto) 23.2 [place] % (Auto) 9.7 Eos % (Auto) 2.3 Baso % (Auto) 0.5 Lymph # (Auto) 1.0 L [place] # (Auto) 0.4 Eos # (Auto) 0.1 Baso # (Auto) 0.0 Abs Immat Gran (auto) 0.01 Absolute Neuts (auto) 2.9 Absolute Nucleated RBC 0.000 Nucleated RBC % (auto) 0.0 Imaging Radiology Impressions: ITS Impressions Head CT 06/14/22 18:08 IMPRESSION: 1. No evidence of acute intracranial hemorrhage or edematous territorial infarction. 2. Mild underlying microangiopathy and generalized cerebral volume loss. No overt CT evidence of pattern of white matter/deep joseph matter changes to correlate with the presenting history of Wernicke-Korsakoff syndrome (although demonstration of these changes may be limited by CT). Medications Medications Current Medications Acetaminophen (Acetaminophen 325 Mg Tablet) 650 mg PO Q6H PRN PRN Reason: Headache/Pain Mild Scale (1-3) Last Admin: 06/15/22 20:16 Dose: 650 mg Al Hydroxide/Mg Hydroxide (Magnesium Hydrox/Alum Hydrox 30 Ml Oral.Susp) 30 ml PO Q6H PRN PRN Reason: Heartburn/Nausea Bupropion HCl (Bupropion Hcl Xl 150 Mg Tab.Er.24h) 150 mg PO DAILY [facility] Last Admin: 06/16/22 08:04 Dose: 150 mg Docusate Sodium (Docusate Sodium 100 Mg Capsule) 100 mg PO DAILY PRN PRN Reason: constipation Hydrochlorothiazide (Hydrochlorothiazide 25 Mg Tablet) 25 mg PO DAILY [facility]; Protocol Last Admin: 06/16/22 08:04 Dose: 25 mg Hydroxyzine HCl (Hydroxyzine Hcl 25 Mg Tablet) 25 mg PO Q6H PRN PRN Reason: Anxiety Last Admin: 06/15/22 22:59 Dose: 25 mg Lisinopril (Lisinopril 10 Mg Tablet) 10 mg PO DAILY [facility]; Protocol Last Admin: 06/16/22 08:04 Dose: 10 mg Magnesium Hydroxide (Milk Of Magnesia 30 Ml Oral.Susp) 30 ml PO DAILY PRN PRN Reason: Constipation Last Admin: 06/16/22 10:58 Dose: 30 ml Melatonin (Melatonin 3 Mg Tablet) 3 mg PO BEDTIME PRN PRN Reason: Sleep Last Admin: 06/15/22 20:23 Dose: 3 mg Risperidone (Risperidone 0.5 Mg Tablet) 0.5 mg PO BID [facility] Last Admin: 06/16/22 08:04 Dose: 0.5 mg Tramadol HCl (Tramadol Hcl 50 Mg Tablet) 50 mg PO TID PRN PRN Reason: Pain, Moderate (Pain Scale 4-6 Last Admin: 06/16/22 08:14 Dose: 50 mg Trazodone HCl (Trazodone Hcl 100 Mg Tablet) 200 mg PO BEDTIME [facility] Last Admin: 06/15/22 22:59 Dose: 200 mg Allergies Allergies Allergy/AdvReac Type Severity Reaction Status Date / Time No Known Allergies Allergy Verified 07/07/21 15:27 Assessment & Plan Assessment & Plan (1) Fibromyalgia: Status: Acute Code(s): M79.7 - Fibromyalgia (2) Alcohol use disorder, mild, abuse: Status: Acute Code(s): F10.10 - Alcohol abuse, uncomplicated (3) Mood disorder: Status: Acute Code(s): F39 - Unspecified mood [affective] disorder (4) Hypertension: Status: Acute Code(s): I10 - Essential (primary) hypertension Plan #. Fibromyalgia: Patient states she failed/did not tolerate outpatient gabapentin and Lyrica. Does not want to retry gabapentin. Okay to use acetaminophen or tramadol, alone or in combination, especially if patient requires additional pain relief on temporary basis for disease exacerbation. Avoid NSAIDs or steroids. May benefit from adding SSRIs/SNRIs. #. Insomnia: On trazodone . We will increase up to 100 mg p.o. q.h.s. #. Essential hypertension: On lisinopril and hydrochlorothiazide and blood pressure well controlled. #. Mood disorder: Medications as per psych tramadol will be restarted up to 50 mg p.o. t.i.d. p.r.n. pain We will increase Risperdal up to 1 mg p.o. b.i.d. to target mood lability. I spent ___20___ minutes with the patient and/or on the patient floor today, greater than?50% of which was spent counseling/coordinating care. Reason for contiued inpatient stay Substantial Risk for: inability to function, rapid decompensation and med/psych decompensation
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
[2022-06-16 19:10] VITALS: BP 108/69; PULSE 89; RESP 14; TEMP 37; O2SAT 99
[2022-06-16] MEDS: hydrOXYzine HCL 25 MG TABLET PO (19:40)
[2022-06-16] MEDS: risperiDONE 1 MG TABLET PO (19:40)
[2022-06-16] MEDS: traZODone HCL 100 MG TABLET 200 MG PO (19:41)
[2022-06-17] MEDS: traZODone HCL 100 MG TABLET 200 MG PO ×2 (00:01→20:02)
[2022-06-17 06:00] VITALS: BP 108/72; PULSE 87; RESP 17; TEMP 37.1; O2SAT 97
[2022-06-17] MEDS: hydroCHLOROthiazide 25 MG TABLET PO (08:07)
[2022-06-17] MEDS: buPROPion HCl XL 150 MG TAB.ER.24H PO (08:07)
[2022-06-17] MEDS: lisinopriL 10 MG TABLET PO (08:07)
[2022-06-17] MEDS: risperiDONE 1 MG TABLET PO ×2 (08:08→20:01)
--- NOTE | 2022-06-17 08:30 | HO.PSYCHPN ---
Subjective Subjective Date of Service: 06/17/22 Reason For Visit: anxiety Subjective Notes: Conditional Voluntary Interim History: the nursing staff reported the patient has been more visible in the unit in the morning. She attended a few groups and she showered. She had a restless night and she needed trazodone 200 p.o. q.h.s. at night. She stated the medications are start to work on her and she feels more relaxed still she woke up early in her sleep is not the best. On interview the patient reports that she is feeling fine. Recovery resources have been referred and they are going to talk with her pretty soon. Mental Status Exam Mental Status Exam Patient Appearance: Well Grooomed Patient Orientation: Person and Situation Level of Consciousness: Awake Patient Behavior: Cooperative Mood Description: Constricted Affect Description: Calm Ability to Follow Directions: Good Speech Pattern: Clear Hallucinations: None Delusions: Not Present Thought Process: Distracted Thought Content: positive for Circumstantial Judgement: Fair Diagnostics Vital Signs (24Hr): Vital Signs - 24 hr 06/16/22 19:10 Temperature 98.6 F Pulse Rate 89 Respiratory Rate 14 Blood Pressure 108/69 Pulse Oximetry 99 Oxygen Delivery Method Room Air BMI result Body Mass Index 22.6 Labs Results: 06/15/22 08:00 Imaging Radiology Impressions: ITS Impressions Head CT 06/14/22 18:08 IMPRESSION: 1. No evidence of acute intracranial hemorrhage or edematous territorial infarction. 2. Mild underlying microangiopathy and generalized cerebral volume loss. No overt CT evidence of pattern of white matter/deep joseph matter changes to correlate with the presenting history of Wernicke-Korsakoff syndrome (although demonstration of these changes may be limited by CT). Medications Medications Current Medications Acetaminophen (Acetaminophen 325 Mg Tablet) 650 mg PO Q6H PRN PRN Reason: Headache/Pain Mild Scale (1-3) Last Admin: 06/15/22 20:16 Dose: 650 mg Al Hydroxide/Mg Hydroxide (Magnesium Hydrox/Alum Hydrox 30 Ml Oral.Susp) 30 ml PO Q6H PRN PRN Reason: Heartburn/Nausea Bupropion HCl (Bupropion Hcl Xl 150 Mg Tab.Er.24h) 150 mg PO DAILY [facility] Last Admin: 06/17/22 08:07 Dose: 150 mg Docusate Sodium (Docusate Sodium 100 Mg Capsule) 100 mg PO DAILY PRN PRN Reason: constipation Hydrochlorothiazide (Hydrochlorothiazide 25 Mg Tablet) 25 mg PO DAILY [facility]; Protocol Last Admin: 06/17/22 08:07 Dose: 25 mg Hydroxyzine HCl (Hydroxyzine Hcl 25 Mg Tablet) 25 mg PO Q6H PRN PRN Reason: Anxiety Last Admin: 06/16/22 19:40 Dose: 25 mg Lisinopril (Lisinopril 10 Mg Tablet) 10 mg PO DAILY [facility]; Protocol Last Admin: 06/17/22 08:07 Dose: 10 mg Magnesium Hydroxide (Milk Of Magnesia 30 Ml Oral.Susp) 30 ml PO DAILY PRN PRN Reason: Constipation Last Admin: 06/16/22 10:58 Dose: 30 ml Melatonin (Melatonin 3 Mg Tablet) 3 mg PO BEDTIME PRN PRN Reason: Sleep Last Admin: 06/15/22 20:23 Dose: 3 mg Risperidone (Risperidone 1 Mg Tablet) 1 mg PO BID [facility] Last Admin: 06/17/22 08:08 Dose: 1 mg Tramadol HCl (Tramadol Hcl 50 Mg Tablet) 50 mg PO TID PRN PRN Reason: Pain, Moderate (Pain Scale 4-6 Last Admin: 06/16/22 19:46 Dose: 50 mg Trazodone HCl (Trazodone Hcl 100 Mg Tablet) 200 mg PO BEDTIME [facility] Last Admin: 06/17/22 00:01 Dose: 200 mg Allergies Allergies Allergy/AdvReac Type Severity Reaction Status Date / Time No Known Allergies Allergy Verified 07/07/21 15:27 Assessment & Plan Assessment & Plan (1) Fibromyalgia: Status: Acute Code(s): M79.7 - Fibromyalgia (2) Alcohol use disorder, mild, abuse: Status: Acute Code(s): F10.10 - Alcohol abuse, uncomplicated (3) Mood disorder: Status: Acute Code(s): F39 - Unspecified mood [affective] disorder (4) Hypertension: Status: Acute Code(s): I10 - Essential (primary) hypertension Plan #. Fibromyalgia: Patient states she failed/did not tolerate outpatient gabapentin and Lyrica. Does not want to retry gabapentin. Okay to use acetaminophen or tramadol, alone or in combination, especially if patient requires additional pain relief on temporary basis for disease exacerbation. Avoid NSAIDs or steroids. May benefit from adding SSRIs/SNRIs. #. Insomnia: On trazodone . We will increase up to 100 mg p.o. q.h.s. #. Essential hypertension: On lisinopril and hydrochlorothiazide and blood pressure well controlled. #. Mood disorder: Medications as per psych tramadol will be restarted up to 50 mg p.o. t.i.d. p.r.n. pain We will increase Risperdal up to 1 mg p.o. b.i.d. to target mood lability. I spent ___20___ minutes with the patient and/or on the patient floor today, greater than?50% of which was spent counseling/coordinating care. Reason for contiued inpatient stay Substantial Risk for: inability to function, rapid decompensation and med/psych decompensation
[2022-06-17] MEDS: Milk of Magnesia 30 ML ORAL.SUSP PO (13:48)
[2022-06-17 19:30] VITALS: BP 98/60; PULSE 91; RESP 16; TEMP 36.4; O2SAT 98
--- NOTE | 2022-06-17 19:46 | MHC.RECOVSUP ---
? Reason for consult:Recovery Support o Current location: [id number] o Identified substance use concern: AUD? - Support ? ?Intervention: o Community resources provided o Harm reduction discussion ? Plan: o Referral to [facility] o Follow up tomorrow ? ? Additional information: Consultation with the Care Team upon connecting with patient. Patient describes her recovery in detail and claims she blackouts from 80 proof alcohol content. She is looking for resources in the community, support through AA and is looking for a referral for [facility]. We were able to review harm reduction strategies and tools that she can utilize in the moment. A follow up with the referral for services for Monday.
[2022-06-17] MEDS: hydrOXYzine HCL 25 MG TABLET PO (20:01)
[2022-06-17] MEDS: traMADoL HCL 50 MG TABLET PO (20:01)
[2022-06-18] MEDS: Melatonin 3 MG TABLET PO ×2 (00:33→22:26)
[2022-06-18 08:20] VITALS: BP 130/89; PULSE 93; RESP 17; TEMP 36.7; O2SAT 100
[2022-06-18] MEDS: hydroCHLOROthiazide 25 MG TABLET PO (08:21)
[2022-06-18] MEDS: buPROPion HCl XL 150 MG TAB.ER.24H PO (08:21)
[2022-06-18] MEDS: lisinopriL 10 MG TABLET PO (08:22)
[2022-06-18] MEDS: risperiDONE 1 MG TABLET PO ×2 (08:22→21:03)
--- NOTE | 2022-06-18 10:41 | P.PNPSI_ITS ---
Subjective Subjective Date of Service: 06/18/22 Reason For Visit: anxiety Subjective Notes: Conditional Voluntary Interim History: Patient was seen and discussed in rounds today. Records and plans were reviewed. She has been visible, social. Continues to have some anxiety. She is looking forward to possible discharge, mid week next week. No behavioral issues. No complaints or side effects. She states that the wrist was all has been extremely helpful with her anxiety and thinking. No side effects. No changes were made today Mental Status Exam Mental Status Exam Patient Appearance: Well Grooomed Patient Orientation: Person and Situation Level of Consciousness: Awake Patient Behavior: Cooperative Mood Description: Constricted Affect Description: Calm Ability to Follow Directions: Good Speech Pattern: Clear Hallucinations: None Delusions: Not Present Thought Process: Distracted Thought Content: positive for Circumstantial Judgement: Fair Diagnostics Vital Signs (24Hr): Vital Signs - 24 hr 06/17/22 19:30 06/18/22 08:20 Temperature 97.6 F 98.1 F Pulse Rate 91 93 Respiratory Rate 16 17 Blood Pressure 98/60 130/89 Pulse Oximetry 98 100 Oxygen Delivery Method Room Air Room Air BMI result Body Mass Index 22.6 Labs Results: 06/15/22 08:00 Imaging Radiology Impressions: ITS Impressions Head CT 06/14/22 18:08 IMPRESSION: 1. No evidence of acute intracranial hemorrhage or edematous territorial infarction. 2. Mild underlying microangiopathy and generalized cerebral volume loss. No overt CT evidence of pattern of white matter/deep joseph matter changes to correlate with the presenting history of Wernicke-Korsakoff syndrome (although demonstration of these changes may be limited by CT). Medications Medications Current Medications Acetaminophen (Acetaminophen 325 Mg Tablet) 650 mg PO Q6H PRN PRN Reason: Headache/Pain Mild Scale (1-3) Last Admin: 06/15/22 20:16 Dose: 650 mg Al Hydroxide/Mg Hydroxide (Magnesium Hydrox/Alum Hydrox 30 Ml Oral.Susp) 30 ml PO Q6H PRN PRN Reason: Heartburn/Nausea Bupropion HCl (Bupropion Hcl Xl 150 Mg Tab.Er.24h) 150 mg PO DAILY [facility] Last Admin: 06/18/22 08:21 Dose: 150 mg Docusate Sodium (Docusate Sodium 100 Mg Capsule) 100 mg PO DAILY PRN PRN Reason: constipation Hydrochlorothiazide (Hydrochlorothiazide 25 Mg Tablet) 25 mg PO DAILY [facility]; Protocol Last Admin: 06/18/22 08:21 Dose: 25 mg Hydroxyzine HCl (Hydroxyzine Hcl 25 Mg Tablet) 25 mg PO Q6H PRN PRN Reason: Anxiety Last Admin: 06/17/22 20:01 Dose: 25 mg Lisinopril (Lisinopril 10 Mg Tablet) 10 mg PO DAILY [facility]; Protocol Last Admin: 06/18/22 08:22 Dose: 10 mg Magnesium Hydroxide (Milk Of Magnesia 30 Ml Oral.Susp) 30 ml PO DAILY PRN PRN Reason: Constipation Last Admin: 06/17/22 13:48 Dose: 30 ml Melatonin (Melatonin 3 Mg Tablet) 3 mg PO BEDTIME PRN PRN Reason: Sleep Last Admin: 06/18/22 00:33 Dose: 3 mg Risperidone (Risperidone 1 Mg Tablet) 1 mg PO BID [facility] Last Admin: 06/18/22 08:22 Dose: 1 mg Tramadol HCl (Tramadol Hcl 50 Mg Tablet) 50 mg PO TID PRN PRN Reason: Pain, Moderate (Pain Scale 4-6 Last Admin: 06/17/22 20:01 Dose: 50 mg Trazodone HCl (Trazodone Hcl 100 Mg Tablet) 200 mg PO BEDTIME [facility] Last Admin: 06/17/22 20:02 Dose: 200 mg Allergies Allergies Allergy/AdvReac Type Severity Reaction Status Date / Time No Known Allergies Allergy Verified 07/07/21 15:27 Assessment & Plan Assessment & Plan (1) Fibromyalgia: Status: Acute Code(s): M79.7 - Fibromyalgia (2) Alcohol use disorder, mild, abuse: Status: Acute Code(s): F10.10 - Alcohol abuse, uncomplicated (3) Mood disorder: Status: Acute Code(s): F39 - Unspecified mood [affective] disorder (4) Hypertension: Status: Acute Code(s): I10 - Essential (primary) hypertension Plan #. Fibromyalgia: Patient states she failed/did not tolerate outpatient gabapen tin and Lyrica. Does not want to retry gabapentin. Okay to use acetaminophen or tramadol, alone or in combination, especially if patient requires additional pain relief on temporary basis for disease exacerbation. Avoid NSAIDs or steroids. May benefit from adding SSRIs/SNRIs. #. Insomnia: On trazodone . We will increase up to 100 mg p.o. q.h.s. #. Essential hypertension: On lisinopril and hydrochlorothiazide and blood pressure well controlled. #. Mood disorder: Medications as per psych tramadol will be restarted up to 50 mg p.o. t.i.d. p.r.n. pain We will increase Risperdal up to 1 mg p.o. b.i.d. to target mood lability. 06/18: Continue current regimen and plans I spent minutes with the patient and/or on the patient floor today, greater than?50% of which was spent counseling/coordinating care. Reason for contiued inpatient stay Substantial Risk for: med/psych decompensation
[2022-06-18 18:26] VITALS: BP 108/62; PULSE 101; RESP 17; TEMP 36.6; O2SAT 98
[2022-06-18] MEDS: traMADoL HCL 50 MG TABLET PO (18:56)
[2022-06-18] MEDS: traZODone HCL 100 MG TABLET 200 MG PO (21:02)
[2022-06-18] MEDS: hydrOXYzine HCL 25 MG TABLET PO (22:26)
[2022-06-19] MEDS: traZODone HCL 100 MG TABLET 200 MG PO ×2 (01:27→19:59)
[2022-06-19 08:26] VITALS: BP 111/66; PULSE 102; RESP 18; TEMP 36.6; O2SAT 99
[2022-06-19] MEDS: lisinopriL 10 MG TABLET PO (08:27)
[2022-06-19] MEDS: buPROPion HCl XL 150 MG TAB.ER.24H PO (08:27)
[2022-06-19] MEDS: risperiDONE 1 MG TABLET PO ×2 (08:27→20:00)
[2022-06-19] MEDS: hydroCHLOROthiazide 25 MG TABLET PO (08:28)
--- NOTE | 2022-06-19 08:34 | HO.PSYCHPN ---
Subjective Subjective Date of Service: 06/19/22 Reason For Visit: anxiety Subjective Notes: Conditional Voluntary Interim History: Patient was seen and discussed in rounds today. Records and plans were reviewed. She is doing quite well and looking forward to discharge. She talked about her long few years of sobriety and wanting to go back to that place again. She is wondering about being prescribed naltrexone. Previously she has been on Antabuse. I suggested her discussing that with her psychiatrist tomorrow. She is quite encouraged that might be a possibility. Eating and sleeping adequately. No other complaints or difficulties. No changes were implemented to Review of Systems Review of Systems Yes all other systems are reviewed and are negative Diagnostics Vital Signs (24Hr): Vital Signs - 24 hr 06/18/22 18:26 06/19/22 08:26 Temperature 97.9 F 97.9 F Pulse Rate 101 H 102 H Respiratory Rate 17 18 Blood Pressure 108/62 111/66 Pulse Oximetry 98 99 Oxygen Delivery Method Room Air Room Air BMI result Body Mass Index 22.6 Labs Results: 06/15/22 08:00 Imaging Radiology Impressions: ITS Impressions Head CT 06/14/22 18:08 IMPRESSION: 1. No evidence of acute intracranial hemorrhage or edematous territorial infarction. 2. Mild underlying microangiopathy and generalized cerebral volume loss. No overt CT evidence of pattern of white matter/deep joseph matter changes to correlate with the presenting history of Wernicke-Korsakoff syndrome (although demonstration of these changes may be limited by CT). Medications Medications Current Medications Acetaminophen (Acetaminophen 325 Mg Tablet) 650 mg PO Q6H PRN PRN Reason: Headache/Pain Mild Scale (1-3) Last Admin: 06/15/22 20:16 Dose: 650 mg Al Hydroxide/Mg Hydroxide (Magnesium Hydrox/Alum Hydrox 30 Ml Oral.Susp) 30 ml PO Q6H PRN PRN Reason: Heartburn/Nausea Bupropion HCl (Bupropion Hcl Xl 150 Mg Tab.Er.24h) 150 mg PO DAILY [facility] Last Admin: 06/19/22 08:27 Dose: 150 mg Docusate Sodium (Docusate Sodium 100 Mg Capsule) 100 mg PO DAILY PRN PRN Reason: constipation Hydrochlorothiazide (Hydrochlorothiazide 25 Mg Tablet) 25 mg PO DAILY [facility]; Protocol Last Admin: 06/19/22 08:28 Dose: 25 mg Hydroxyzine HCl (Hydroxyzine Hcl 25 Mg Tablet) 25 mg PO Q6H PRN PRN Reason: Anxiety Last Admin: 06/18/22 22:26 Dose: 25 mg Lisinopril (Lisinopril 10 Mg Tablet) 10 mg PO DAILY [facility]; Protocol Last Admin: 06/19/22 08:27 Dose: 10 mg Magnesium Hydroxide (Milk Of Magnesia 30 Ml Oral.Susp) 30 ml PO DAILY PRN PRN Reason: Constipation Last Admin: 06/17/22 13:48 Dose: 30 ml Melatonin (Melatonin 3 Mg Tablet) 3 mg PO BEDTIME PRN PRN Reason: Sleep Last Admin: 06/18/22 22:26 Dose: 3 mg Risperidone (Risperidone 1 Mg Tablet) 1 mg PO BID [facility] Last Admin: 06/19/22 08:27 Dose: 1 mg Tramadol HCl (Tramadol Hcl 50 Mg Tablet) 50 mg PO TID PRN PRN Reason: Pain, Moderate (Pain Scale 4-6 Last Admin: 06/18/22 18:56 Dose: 50 mg Trazodone HCl (Trazodone Hcl 100 Mg Tablet) 200 mg PO BEDTIME [facility] Last Admin: 06/19/22 01:27 Dose: 200 mg Allergies Allergies Allergy/AdvReac Type Severity Reaction Status Date / Time No Known Allergies Allergy Verified 07/07/21 15:27 Assessment & Plan Assessment & Plan (1) Fibromyalgia: Status: Acute Code(s): M79.7 - Fibromyalgia (2) Alcohol use disorder, mild, abuse: Status: Acute Code(s): F10.10 - Alcohol abuse, uncomplicated (3) Mood disorder: Status: Acute Code(s): F39 - Unspecified mood [affective] disorder (4) Hypertension: Status: Acute Code(s): I10 - Essential (primary) hypertension Plan #. Fibromyalgia: Patient states she failed/did not tolerate outpatient gabapentin and Lyrica. Does not want to retry gabapentin. Okay to use acetaminophen or tramadol, alone or in combination, especially if patient requires additional pain relief on temporary basis for disease exacerbation. Avoid NSAIDs or steroids. May benefit from adding SSRIs/SNRIs. #. Insomnia: On trazodone . We will increase up to 100 mg p.o. q.h.s. #. Essential hypertension: On lisinopril and hydrochlorothiazide and blood pressure well controlled. #. Mood disorder: Medications as per psych tramadol will be restarted up to 50 mg p.o. t.i.d. p.r.n. pain We will increase Risperdal up to 1 mg p.o. b.i.d. to target mood lability. 06/18: Continue current regimen and plans 06/19: Continue current regimen and plans. Discussed use of naltrexone with her doctor tomorrow I spent minutes with the patient and/or on the patient floor today, greater than?50% of which was spent counseling/coordinating care. Patient educated on: medication risk/benefits Reason for contiued inpatient stay Substantial Risk for: med/psych decompensation
[2022-06-19] MEDS: hydrOXYzine HCL 25 MG TABLET PO ×2 (09:32→20:03)
[2022-06-19] MEDS: traMADoL HCL 50 MG TABLET PO (17:19)
[2022-06-19 18:00] VITALS: BP 97/54; PULSE 94; RESP 16; TEMP 36.3; O2SAT 98
[2022-06-19] MEDS: Acetaminophen 325 MG TABLET 650 MG PO (22:55)
[2022-06-20 07:30] VITALS: BP 131/60; PULSE 91; RESP 16; TEMP 36.3; O2SAT 98
[2022-06-20] MEDS: buPROPion HCl XL 150 MG TAB.ER.24H PO (09:43)
[2022-06-20] MEDS: hydroCHLOROthiazide 25 MG TABLET PO (09:43)
[2022-06-20] MEDS: risperiDONE 1 MG TABLET PO ×2 (09:43→22:15)
[2022-06-20] MEDS: traMADoL HCL 50 MG TABLET PO ×2 (09:44→20:34)
[2022-06-20] MEDS: lisinopriL 10 MG TABLET PO (09:44)
[2022-06-20] MEDS: Acetaminophen 325 MG TABLET 650 MG PO (11:11)
--- NOTE | 2022-06-20 13:18 | P.PNPSI_ITS ---
Subjective Subjective Date of Service: 06/20/22 Reason For Visit: anxiety Subjective Notes: Conditional Voluntary Interim History: The nursing staff reported the patient has been fully compliant with treatment. Last Monday she met with a parent coach and they are working on a feasible plan. On interview the patient denies new symptoms she states that she is doing much better with increase of Risperdal up to 1 mg p.o. b.i.d. with no evidence of side effects. We discussed about Naltrexone and she denied having any cravings. Mental Status Exam Mental Status Exam Patient Appearance: Well Grooomed Patient Orientation: Person and Situation Level of Consciousness: Awake Patient Behavior: Cooperative Mood Description: Calm Affect Description: Constricted Patient Cognition Impaired: Yes Ability to Follow Directions: Good Speech Pattern: Clear Hallucinations: None Delusions: Paranoid Ideation Thought Process: Linear Thought Content: positive for [place] Judgement: Fair Diagnostics Vital Signs (24Hr): Vital Signs - 24 hr 06/19/22 18:00 06/20/22 07:30 Temperature 97.4 F 97.4 F Pulse Rate 94 91 Respiratory Rate 16 16 Blood Pressure 97/54 L 131/60 Pulse Oximetry 98 98 Oxygen Delivery Method Room Air Room Air BMI result Body Mass Index 22.6 Labs Results: 06/15/22 08:00 Imaging Radiology Impressions: ITS Impressions Head CT 06/14/22 18:08 IMPRESSION: 1. No evidence of acute intracranial hemorrhage or edematous territorial infarction. 2. Mild underlying microangiopathy and generalized cerebral volume loss. No overt CT evidence of pattern of white matter/deep joseph matter changes to correlate with the presenting history of Wernicke-Korsakoff syndrome (although demonstration of these changes may be limited by CT). Medications Medications Current Medications Acetaminophen (Acetaminophen 325 Mg Tablet) 650 mg PO Q6H PRN PRN Reason: Headache/Pain Mild Scale (1-3) Last Admin: 06/20/22 11:11 Dose: 650 mg Al Hydroxide/Mg Hydroxide (Magnesium Hydrox/Alum Hydrox 30 Ml Oral.Susp) 30 ml PO Q6H PRN PRN Reason: Heartburn/Nausea Bupropion HCl (Bupropion Hcl Xl 150 Mg Tab.Er.24h) 150 mg PO DAILY [facility] Last Admin: 06/20/22 09:43 Dose: 150 mg Docusate Sodium (Docusate Sodium 100 Mg Capsule) 100 mg PO DAILY PRN PRN Reason: constipation Hydrochlorothiazide (Hydrochlorothiazide 25 Mg Tablet) 25 mg PO DAILY [facility]; Protocol Last Admin: 06/20/22 09:43 Dose: 25 mg Hydroxyzine HCl (Hydroxyzine Hcl 25 Mg Tablet) 25 mg PO Q6H PRN PRN Reason: Anxiety Last Admin: 06/19/22 20:03 Dose: 25 mg Ibuprofen (Ibuprofen 400 Mg Tablet) 400 mg PO Q6H PRN PRN Reason: Pain, Moderate (Pain Scale 4-6 Lisinopril (Lisinopril 10 Mg Tablet) 10 mg PO DAILY [facility]; Protocol Last Admin: 06/20/22 09:44 Dose: 10 mg Magnesium Hydroxide (Milk Of Magnesia 30 Ml Oral.Susp) 30 ml PO DAILY PRN PRN Reason: Constipation Last Admin: 06/17/22 13:48 Dose: 30 ml Melatonin (Melatonin 3 Mg Tablet) 3 mg PO BEDTIME PRN PRN Reason: Sleep Last Admin: 06/18/22 22:26 Dose: 3 mg Risperidone (Risperidone 1 Mg Tablet) 1 mg PO BID [facility] Last Admin: 06/20/22 09:43 Dose: 1 mg Tramadol HCl (Tramadol Hcl 50 Mg Tablet) 50 mg PO TID PRN PRN Reason: Pain, Moderate (Pain Scale 4-6 Last Admin: 06/20/22 09:44 Dose: 50 mg Trazodone HCl (Trazodone Hcl 100 Mg Tablet) 200 mg PO BEDTIME [facility] Last Admin: 06/19/22 19:59 Dose: 200 mg Allergies Allergies Allergy/AdvReac Type Severity Reaction Status Date / Time No Known Allergies Allergy Verified 07/07/21 15:27 Assessment & Plan Assessment & Plan (1) Fibromyalgia: Status: Acute Code(s): M79.7 - Fibromyalgia (2) Alcohol use disorder, mild, abuse: Status: Acute Code(s): F10.10 - Alcohol abuse, uncomplicated (3) Mood disorder: Status: Acute Code(s): F39 - Unspecified mood [affective] disorder (4) Hypertension: Status: Acute Code(s): I10 - Essential (primary) hypertension Plan #. Fibromyalgia: Patient states she failed/did not tolerate outpatient gabapentin and Lyrica. Does not want to retry gabapentin. Okay to use acetaminophen or tramadol, alone or in combination, especially if patient requires additional pain relief on temporary basis for disease exacerbation. Avoid NSAIDs or steroids. May benefit from adding SSRIs/SNRIs. #. Insomnia: On trazodone . We will increase up to 100 mg p.o. q.h.s. #. Essential hypertension: On lisinopril and hydrochlorothiazide and blood pressure well controlled. #. Mood disorder: Medications as per psych tramadol will be restarted up to 50 mg p.o. t.i.d. p.r.n. pain We will increase Risperdal up to 1 mg p.o. b.i.d. to target mood lability. I spent ___20___ minutes with the patient and/or on the patient floor today, greater than?50% of which was spent counseling/coordinating care. Reason for contiued inpatient stay Substantial Risk for: inability to function, rapid decompensation and med/psych decompensation
[2022-06-20] MEDS: Milk of Magnesia 30 ML ORAL.SUSP PO (13:32)
[2022-06-20] MEDS: Ibuprofen 400 MG TABLET PO (17:40)
[2022-06-20 18:00] VITALS: BP 94/52; PULSE 83; RESP 14; TEMP 36.6; O2SAT 97
[2022-06-20] MEDS: Melatonin 3 MG TABLET PO (20:33)
[2022-06-20] MEDS: traZODone HCL 100 MG TABLET 200 MG PO ×2 (20:33→23:10)
[2022-06-20] MEDS: hydrOXYzine HCL 25 MG TABLET PO (20:33)
[2022-06-21] MEDS: Ibuprofen 400 MG TABLET PO ×2 (01:45→20:53)
[2022-06-21] MEDS: hydrOXYzine HCL 25 MG TABLET PO (01:45)
[2022-06-21] MEDS: buPROPion HCl XL 150 MG TAB.ER.24H PO (07:58)
[2022-06-21] MEDS: hydroCHLOROthiazide 25 MG TABLET PO (07:58)
[2022-06-21] MEDS: risperiDONE 1 MG TABLET PO ×2 (07:58→20:48)
[2022-06-21] MEDS: lisinopriL 10 MG TABLET PO (07:58)
[2022-06-21 08:03] VITALS: BP 134/86; PULSE 87; RESP 17; TEMP 36.8; O2SAT 99
[2022-06-21] MEDS: traMADoL HCL 50 MG TABLET PO ×2 (15:57→23:31)
--- NOTE | 2022-06-21 16:14 | HO.PSYCHPN ---
Subjective Subjective Date of Service: 06/21/22 Reason For Visit: anxiety Subjective Notes: Conditional Voluntary Interim History: The nursing staff reported the patient had been cooperative and pleasant, fully compliant with treatment. She has participated in some groups and she feels much better. On interview the patient complained of mild tremor so she agreed to take a low dose of Cogentin. Excited for discharge tomorrow morning Mental Status Exam Mental Status Exam Patient Appearance: Well Grooomed Patient Orientation: Person Level of Consciousness: Awake Patient Behavior: Cooperative Mood Description: Constricted Affect Description: Calm Patient Cognition Impaired: No Ability to Follow Directions: Good Speech Pattern: Clear Hallucinations: None Delusions: Not Present Thought Process: Intact Thought Content: positive for Goal Oriented Judgement: Fair Diagnostics Vital Signs (24Hr): Vital Signs - 24 hr 06/20/22 18:00 06/21/22 08:03 Temperature 97.8 F 98.3 F Pulse Rate 83 87 Respiratory Rate 14 17 Blood Pressure 94/52 L 134/86 Pulse Oximetry 97 99 Oxygen Delivery Method Room Air Room Air BMI result Body Mass Index 22.6 Labs Results: 06/15/22 08:00 Imaging Radiology Impressions: ITS Impressions Head CT 06/14/22 18:08 IMPRESSION: 1. No evidence of acute intracranial hemorrhage or edematous territorial infarction. 2. Mild underlying microangiopathy and generalized cerebral volume loss. No overt CT evidence of pattern of white matter/deep joseph matter changes to correlate with the presenting history of Wernicke-Korsakoff syndrome (although demonstration of these changes may be limited by CT). Medications Medications Current Medications Acetaminophen (Acetaminophen 325 Mg Tablet) 650 mg PO Q6H PRN PRN Reason: Headache/Pain Mild Scale (1-3) Last Admin: 06/20/22 11:11 Dose: 650 mg Al Hydroxide/Mg Hydroxide (Magnesium Hydrox/Alum Hydrox 30 Ml Oral.Susp) 30 ml PO Q6H PRN PRN Reason: Heartburn/Nausea Bupropion HCl (Bupropion Hcl Xl 150 Mg Tab.Er.24h) 150 mg PO DAILY CAITLIN Last Admin: 06/21/22 07:58 Dose: 150 mg Docusate Sodium (Docusate Sodium 100 Mg Capsule) 100 mg PO DAILY PRN PRN Reason: constipation Hydrochlorothiazide (Hydrochlorothiazide 25 Mg Tablet) 25 mg PO DAILY CAITLIN; Protocol Last Admin: 06/21/22 07:58 Dose: 25 mg Hydroxyzine HCl (Hydroxyzine Hcl 25 Mg Tablet) 25 mg PO Q6H PRN PRN Reason: Anxiety Last Admin: 06/21/22 01:45 Dose: 25 mg Ibuprofen (Ibuprofen 400 Mg Tablet) 400 mg PO Q6H PRN PRN Reason: Pain, Moderate (Pain Scale 4-6 Last Admin: 06/21/22 01:45 Dose: 400 mg Lisinopril (Lisinopril 10 Mg Tablet) 10 mg PO DAILY [facility]; Protocol Last Admin: 06/21/22 07:58 Dose: 10 mg Magnesium Hydroxide (Milk Of Magnesia 30 Ml Oral.Susp) 30 ml PO DAILY PRN PRN Reason: Constipation Last Admin: 06/20/22 13:32 Dose: 30 ml Melatonin (Melatonin 3 Mg Tablet) 3 mg PO BEDTIME PRN PRN Reason: Sleep Last Admin: 06/20/22 20:33 Dose: 3 mg Risperidone (Risperidone 1 Mg Tablet) 1 mg PO BID [facility] Last Admin: 06/21/22 07:58 Dose: 1 mg Tramadol HCl (Tramadol Hcl 50 Mg Tablet) 50 mg PO TID PRN PRN Reason: Pain, Moderate (Pain Scale 4-6 Last Admin: 06/21/22 15:57 Dose: 50 mg Trazodone HCl (Trazodone Hcl 100 Mg Tablet) 200 mg PO BEDTIME [facility] Last Admin: 06/20/22 23:10 Dose: 200 mg Allergies Allergies Allergy/AdvReac Type Severity Reaction Status Date / Time No Known Allergies Allergy Verified 07/07/21 15:27 Assessment & Plan Assessment & Plan (1) Fibromyalgia: Status: Acute Code(s): M79.7 - Fibromyalgia (2) Alcohol use disorder, mild, abuse: Status: Acute Code(s): F10.10 - Alcohol abuse, uncomplicated (3) Mood disorder: Status: Acute Code(s): F39 - Unspecified mood [affective] disorder (4) Hypertension: Status: Acute Code(s): I10 - Essential (primary) hypertension Plan #. Fibromyalgia: Patient states she failed/did not tolerate outpatient gabapentin and Lyrica. Does not want to retry gabapentin. Okay to use acetaminophen or tramadol, alone or in combination, especially if patient requires additional pain relief on temporary basis for disease exacerbation. Avoid NSAIDs or steroids. May benefit from adding SSRIs/SNRIs. #. Insomnia: On trazodone . We will increase up to 100 mg p.o. q.h.s. #. Essential hypertension: On lisinopril and hydrochlorothiazide and blood pressure well controlled. #. Mood disorder: Medications as per psych tramadol will be restarted up to 50 mg p.o. t.i.d. p.r.n. pain We will increase Risperdal up to 1 mg p.o. b.i.d. to target mood lability. Cogentin 0.5 mg p.o. b.i.d. to target EPS I spent __20____ minutes with the patient and/or on the patient floor today, greater than?50% of which was spent counseling/coordinating care. Reason for contiued inpatient stay Substantial Risk for: inability to function, rapid decompensation and med/psych decompensation
[2022-06-21 18:00] VITALS: BP 124/59; PULSE 88; RESP 16; TEMP 36.6; O2SAT 98
[2022-06-21] MEDS: Benztropine Mesylate 0.5 MG TABLET PO (20:48)
[2022-06-21] MEDS: traZODone HCL 100 MG TABLET 200 MG PO (20:48)
[2022-06-21] MEDS: Melatonin 3 MG TABLET PO (23:40)
[2022-06-22 07:30] VITALS: BP 132/66; PULSE 91; RESP 16; TEMP 36.6; O2SAT 99
[2022-06-22] MEDS: risperiDONE 1 MG TABLET PO (09:47)
[2022-06-22] MEDS: lisinopriL 10 MG TABLET PO (09:47)
[2022-06-22] MEDS: hydroCHLOROthiazide 25 MG TABLET PO (09:47)
[2022-06-22] MEDS: Benztropine Mesylate 0.5 MG TABLET PO (09:47)
[2022-06-22] MEDS: buPROPion HCl XL 150 MG TAB.ER.24H PO (09:47)
--- NOTE | 2022-06-22 10:28 | P.DS_ITS ---
DS: Providers Provider Date of Service: 06/22/22 Date of admission: 06/13/22 19:56 Date of discharge: 06/22/22 Primary care physician: Unknown Physician Consults: 06/13/22 20:57 Consult to Hospitalist Routine Consulting Provider: Hospitalist Reason For Exam: new admit from [facility] DS: Diagnosis Discharge Diagnosis (1) Fibromyalgia: Status: Acute (2) Alcohol use disorder, mild, abuse: Status: Acute (3) Mood disorder: Status: Acute (4) Hypertension: Status: Acute DS: Medications Discharge Medications Home Medications: Home Medications Medication Instructions Recorded Confirmed lisinopril 10 mg tablet 1 tab PO DAILY 07/16/21 06/14/22 aripiprazole 2 mg tablet 2 mg PO DAILY 06/14/22 06/14/22 bupropion HCl 150 mg tablet,12 hr 150 mg PO QAM 06/14/22 06/14/22 sustained-release disulfiram 250 mg tablet 250 mg PO DAILY 06/14/22 06/14/22 docusate sodium 100 mg tablet 100 mg PO DAILY PRN Constipation 06/14/22 06/14/22 hydrochlorothiazide 25 mg tablet 25 mg PO DAILY 06/14/22 06/14/22 tramadol 50 mg tablet 50 mg PO Q8H PRN Pain, Moderate 06/14/22 06/14/22 trazodone 100 mg tablet 200 mg PO BEDTIME 06/14/22 06/14/22 Mental Status Exam Mental Status Exam Patient Appearance: Well Grooomed Patient Orientation: Person, Place, Time and Situation Level of Consciousness: Awake Patient Behavior: Cooperative Mood Description: Calm Affect Description: Constricted Patient Cognition Impaired: No Ability to Follow Directions: Good Speech Pattern: Clear Hallucinations: None Delusions: Not Present Thought Process: Linear Thought Content: positive for [place] and positive for Circumstantial Judgement: Fair Data Imaging Diagnostic Imaging Impressions Head CT 06/14/22 18:08 IMPRESSION: 1. No evidence of acute intracranial hemorrhage or edematous territorial infarction. 2. Mild underlying microangiopathy and generalized cerebral volume loss. No overt CT evidence of pattern of white matter/deep joseph matter changes to correlate with the presenting history of Wernicke-Korsakoff syndrome (although demonstration of these changes may be limited by CT). DS: Summary Hospital Course Hospital Course: The patient was admitted into the hospital since she was paranoid and intoxicated with alcohol. The patient carries a diagnosis of alcohol use disorder, PTSD and mood disorder. Please see the HPI for further details on the admission note. On admission, it was review her medications she was on Wellbutrin and other antidepressants but also we added a low dose of Risperdal ID was been titrated slowly up to 1 mg p.o. b.i.d. to target mood lability. The patient's symptoms improved she was pleasant, cooperative, future oriented and she has some insight into her substance abuse that has been chronic. She has long periods of sobriety and she met with the Recovery couch here, which recommended outpatient services. we discussed the possibility of naltrexone but the patient denies cr avings and she refused this treatment at this moment. Since there were no safety concerns discharge planning was discussed. Time spent discussing smoking cessation with patient: 3 to 10 minutes Status at Discharge Cognitive/behavioral status at discharge: At baseline Functional status at discharge: independent ambulation Overall status at discharge: patient is back to baseline Time Spent with Patient Time attestation: Total time spent providing and/or coordinating discharge services: Time spent: Less than 30 minutes Discharge Plan Discharge Patient Disposition: Home, Self-Care Discharge Diagnosis: Mood disorder Alcohol use disorder Referrals: Annetta Mccabe [Other] - 06/23/22 10:00 am (Your nurse Libra and adult protective caseworker Cassie Prado from [place] do home visit following discharge on 06/23/22 at 10:00am. Your elder services adult protective caseworker through [facility] will contact you and schedule home visit and you will receive Home delivered meals and personal care and homemaking hours. A new Personal care/ homemaker will be assigned. ) [facility] [Other] - 07/11/22 2:00 pm (Your first appointment with [facility] is with Theodore Estrada APRN on 07/11/22 at 2PM. This appointment is telehealth. ) Gypsy Valdez SOLA [Other] - 1 Week (Call was placed to your therapist to request appointment. Your [facility] behavioral health specialist will also follow up with therapist to to obtain appointment date and time. ) Candice Taylor MD [Physician] - 1 Week Discharge Medications: New benztropine 0.5 mg Tablet 0.5 mg PO BID 30 Days Qty: 60 0RF melatonin 3 mg Tablet 3 mg PO BEDTIME PRN (Reason: Sleep) Qty: 30 0RF tramadol 50 mg Tablet 50 mg PO TID PRN (Reason: Pain, Moderate (Pain Scale 4-6) Qty: 60 0RF trazodone 100 mg Tablet 200 mg PO BEDTIME 30 Days Qty: 60 0RF ibuprofen 400 mg Tablet 400 mg PO Q6H PRN (Reason: Pain, Moderate (Pain Scale 4-6) Qty: 60 0RF hydroxyzine HCl 25 mg Tablet 25 mg PO Q6H PRN (Reason: Anxiety) Qty: 60 0RF hydrochlorothiazide 25 mg Tablet 25 mg PO DAILY 30 Days Qty: 30 0RF Protocol: Hold for SBP< HOLD for SBP < : 90 risperidone 1 mg Tablet 1 mg PO BID 30 Days Qty: 60 0RF bupropion HCl 150 mg Tablet Extended Release 24 Hr 150 mg PO DAILY 30 Days Qty: 30 0RF Continued lisinopril 10 mg tablet 1 tab PO DAILY Qty: 30 0RF Rx Instructions: 90 day supply filled on 05/11/22 docusate sodium 100 mg Tablet 100 mg PO DAILY PRN (Reason: Constipation) Qty: 30 0RF Rx Instructions: 90 day supply filled and picked up on 05/06/22 Discontinued bupropion HCl 150 mg Tablet Sustained-Release 12 Hr 150 mg PO QAM Rx Instructions: 90 day supply picked up on 05/11/22 disulfiram 250 mg Tablet 250 mg PO DAILY Rx Instructions: pharmacy filled 90 day supply 05/12/22 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 trazodone 100 mg Tablet 200 mg PO BEDTIME Rx Instructions: 30 day supply filled and picked up on 05/11/22 hydrochlorothiazide 25 mg Tablet 25 mg PO DAILY Rx Instructions: 90 day supply filled 05/12/22 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 aripiprazole 2 mg Tablet 2 mg PO DAILY Rx Instructions: 30 day supply picked up on 05/11/22 tramadol 50 mg Tablet 50 mg PO Q8H PRN (Reason: Pain, Moderate) Rx Instructions: 84 tabs picked up 04/30/22 per [facility] Discharge Orders: Discharge Order (Routine); Ordered 06/22/22 Ordered By: Leonidas Araiza Diet: Advance to usual diet Activity on Discharge: As tolerated Stand Alone Forms: Patient Portal Discharge page Care Plan Goals: care plan goals achieved in this admission Health Concerns: continue treatment as an outpatient Plan of Treatment: continue outpatient services Assessment: elderly female with a long history of alcohol use disorder, PTSD, mood disorder and other comorbidities admitted for and recent onset of behavioral disturbances in the context of relapse. At this moment safe to be discharged in the community.
== END 2022-06-22 13:30 | disposition home or self-care (01) | DRG 753 ==
PROVIDERS: Registered Nurse; Admitting Provider Psychiatry & Neurology Psychiatry; Visit Provider Psychiatry & Neurology Psychiatry
DX: F39 Unspecified mood [affective] disorder (principal); F10.10 Alcohol abuse, uncomplicated; G47.00 Insomnia, unspecified; I10 Essential (primary) hypertension; M79.7 Fibromyalgia; Z79.899 Other long term (current) drug therapy
CPT/HCPCS: 36415; 70450; 80061; 82607; 82746; 83036; 83735; 84439; 84443; 85025